=== PATIENT | male | born 1960 | race Caucasian/White ===

== ENCOUNTER 2016-06-20 11:14 | Emergency (ER) | payer OTHER ==
[~2016-06-20] VITALS: Ht 182.9 cm; Wt 81.4 kg
[~2016-06-20 11:14] MED LIST: ASPI-232 PO; ATOR10TA88 PO
[2016-06-20 11:20] VITALS: TEMP 37; Ht 182.9 cm; Wt 81.4 kg
[2016-06-20] MEDS ORDERED: ONDANSETRON INJ 2 MG/ML 2 ML VIAL IV STA (12:47)
[2016-06-20] MEDS ORDERED: SODIUM CHLORIDE 0.9% 1000ML 1,000 ML IV STA (12:47)
[2016-06-20] MEDS ORDERED: LORAZEPAM 2 MG/ML 1 ML VIAL IV STA (12:47)
[2016-06-20] MEDS ORDERED: ACETAMINOPHEN 500 MG TAB PO STA (12:47)
[2016-06-20 12:59] LABS: BASO % 0.4 %; BASO ABS # 0.03 K/uL (0-0.2); COMPLETE YES; EOS % 0.8 %; HEMATOCRIT 41.2 % (42-52); IG% 0.5 %; LYMPH % 22.9 %; LYMPH ABS # 1.75 K/uL (1.2-3.4); MEAN CELL VOLUME 83.4 fL (80-100); MEAN CORPUSCULAR HEMOGLOBIN 28.7 pg (25-34); MEAN CORPUSCULAR HGB CONC 34.5 g/dl (32-36); MEAN PLATELET VOLUME 10.5 fL (7.4-10.4); MONO % 7.7 %; NEUT % 67.7 %; PLATELET COUNT 258 K/uL (130-400); RED BLOOD COUNT 4.94 M/uL (4.7-6.1); WHITE BLOOD COUNT 7.63 K/uL (4.8-10.8)
--- NOTE | 2016-06-20 12:59 | EMERGENCY ROOM VISIT NOTE ---
History Report prepared by Erinn: Tanja Walters Under the Supervision of: Dr. Neo Sands M.D. First contact with patient: 12:38 Chief Complaint: FLU LIKE SX Stated Complaint: NECK STIFFNESS,FLU LIKE SYMPTOMS History of Present Illness The patient is a 55 year old male who presents to the Emergency Room with complaints of a persistent illness that started 10 days ago. He currently rates his discomfort as a 3/10 in severity. The patient states that last he had eaten a sandwich at a local restaurant and became sick afterwards. He states that he had been vomiting and experiencing diarrhea, but states that he felt better after a day. The patient states that last Tuesday he started experiencing chills, but denies any fever. He states that he had been up all night, so then that Tuesday morning he went to [facility]. The patient states that while there he was tested for the flu, but was discharged on Prednisone and Azithromycin. He states that he finished the Z-pack on Tuesday and the Prednisone on . The patient states that he still felt clammy and diaphoretic, and has noticed a dry cough. He states that he has noticed a squeezing pressure behind his eyes. The patient additionally associates rhinorrhea. The patient states that yesterday he went to the gym and did cardio, but states that he felt fine after. He states that he started with the chills again last evening. The patient states that last night around 2100 he began experiencing neck stiffness, joint pain, and a headache. He states that he went [facility] and was sent to the emergency department for a lumbar puncture to rule out meningitis. The patient denies any sore throat or urinary symptoms. He states that he has recently increased his fluid intake. The patient denies any recent travel. He denies being on any blood thinners, but states that he takes Lipitor for his cholesterol. The patient notes a history of a diastolic heart murmur, noting that he follows with Dr. Llamas. He denies any history of endocarditis. The patient denies any recent dental work. Source of History: patient Onset: 10 days ago Position: other (global) Symptom Intensity: 3/10 Quality: other (illness) Timing: other (persistent) Associated Symptoms: + chills, + diaphoresis, + neck pain (and stiffness), No fevers, No sorethroat, No urinary symptoms Note: Associated Symptoms: rhinorrhea, joint aches, feeling clammy Review of Systems See HPI for pertinent positives & negatives. A total of 10 systems reviewed and were otherwise negative. Past Medical & Surgical Medical Problems: (1) Hyperlipidemia Nec/Nos (2) Hypertension Nos (3) Irritable Bowel Syndrome Family History FH: heart disease FHx: gallbladder disease Kidney disease Kidney stones Social History Smoking Status: Never Smoker Alcohol Use: none Drug Use: none Marital Status: Housing Status: lives with family Occupation Status: employed Current/Historical Medications Scheduled Aspirin (Aspir-81), 1 TAB PO DAILY Atorvastatin (Lipitor), 10 MG PO EVERY OTHER DAY Meloxicam (Meloxicam), 15 MG PO DAILY Allergies Coded Allergies: No Known Allergies (Unverified , 06/20/16) Physical Exam Vital Signs Date Time Temp Pulse Resp B/P Pulse Ox O2 Delivery O2 Flow Rate FiO2 06/20/16 13:55 65 18 132/57 97 Room Air 06/20/16 12:25 75 18 163/69 99 Room Air 06/20/16 11:20 37.0 87 18 185/76 97 Room Air Physical Exam GENERAL: Patient is in no acute distress. HEENT: No acute trauma, normocephalic atraumatic, mucous membranes moist, no nasal congestion, no scleral icterus. NECK: Tenderness with palpation to the right posterior and lateral neck muscles. Equal carotid upstrokes bilaterally, no cellulitis, no stridor. LUNGS: Clear to auscultation bilaterally, no wheeze, no rhonchi, breath sounds equal. HEART: 3/6 diastolic murmur with a regular rhythm and rate. ABDOMEN: Soft, nontender, bowel sounds positive, no hernias, no peritonitis. EXTREMITIES: No cyanosis or edema, full range of motion of all the joints without pain or difficulty, no signs for acute trauma. NEUROLOGIC: Oriented x 3, no acute motor or sensory deficits, no focal weakness. SKIN: No rash, no jaundice, no diaphoresis. Medical Decision & Procedures ER Provider Diagnostic Interpretation: X-ray results as stated below per interpretation by me and the radiologist: CHEST ONE VIEW PORTABLE HISTORY: Evaluate Fever/Sepsis COMPARISON: Chest 10/24/2013. FINDINGS: The lungs are clear. Cardiac silhouette is normal in size. No pleural effusions. No pneumothorax. IMPRESSION: No acute process. Electronically signed by: Jose Martin Cao M.D. 06/20/2016 1:32 PM Dictated Date/Time: 06/20/2016 1:32 PM Laboratory Results 06/20/16 12:22 Red Blood Count 4.94, Mean Corpuscular Volume 83.4, Mean Corpuscular Hemoglobin 28.7, Mean Corpuscular Hemoglobin Concent 34.5, Mean Platelet Volume 10.5, Neutrophils (%) (Auto) 67.7, Lymphocytes (%) (Auto) 22.9, Monocytes (%) (Auto) 7.7, Eosinophils (%) (Auto) 0.8, Basophils (%) (Auto) 0.4, Neutrophils # (Auto) 5.16, Lymphocytes # (Auto) 1.75, Monocytes # (Auto) 0.59, Eosinophils # (Auto) 0.06, Basophils # (Auto) 0.03 06/20/16 12:22 Test 06/20/16 00:00 06/20/16 11:45 06/20/16 12:22 06/20/16 13:04 CSF Color COLORLESS CSF Appearance CLEAR CSF WBC 3 /uL (0-5) CSF RBC 2 /uL (0) CSF Xanthrochromic NO XANTHOCHROMIA CSF Cell Count Tube # 4 CSF Polynuclear WBCs (%) % CSF Chemistry Tube # 2 CSF Glucose 58 mg/dl (40-70) CSF Total Protein 40.8 mg/dl (15.0-45.0) Urine Color DK YELLOW Urine Appearance CLEAR (CLEAR) Urine pH 5.5 (4.5-7.5) Urine Specific [place] 1.020 (1.000-1.030) Urine Protein TRACE (NEG) Urine Glucose (UA) NEG (NEG) Urine Ketones NEG (NEG) Urine Occult Blood NEG (NEG) Urine Nitrite NEG (NEG) Urine Bilirubin NEG (NEG) Urine Urobilinogen NEG (NEG) Urine Leukocyte Esterase NEG (NEG) Urine WBC (Auto) 1-5 /hpf (0-5) Urine RBC (Auto) 0-4 /hpf (0-4) Urine Hyaline Casts (Auto) 1-5 /lpf (0-5) Urine Epithelial Cells (Auto) 5-10 /lpf (0-5) Urine Bacteria (Auto) NEG (NEG) White Blood Count 7.63 K/uL (4.8-10.8) Red Blood Count 4.94 M/uL (4.7-6.1) Hemoglobin 14.2 g/dL (14.0-18.0) Hematocrit 41.2 % (42-52) Mean Corpuscular Volume 83.4 fL (80-100) Mean Corpuscular Hemoglobin 28.7 pg (25-34) Mean Corpuscular Hemoglobin Concent 34.5 g/dl (32-36) Platelet Count 258 K/uL (130-400) Mean Platelet Volume 10.5 fL (7.4-10.4) Neutrophils (%) (Auto) 67.7 % Lymphocytes (%) (Auto) 22.9 % Monocytes (%) (Auto) 7.7 % Eosinophils (%) (Auto) 0.8 % Basophils (%) (Auto) 0.4 % Neutrophils # (Auto) 5.16 K/uL (1.4-6.5) Lymphocytes # (Auto) 1.75 K/uL (1.2-3.4) Monocytes # (Auto) 0.59 K/uL (0.11-0.59) Eosinophils # (Auto) 0.06 K/uL (0-0.5) Basophils # (Auto) 0.03 K/uL (0-0.2) RDW Standard Deviation 38.7 fL (36.4-46.3) RDW Coefficient of Variation 12.8 % (11.5-14.5) Immature Granulocyte % (Auto) 0.5 % Immature Granulocyte # (Auto) 0.04 K/uL (0.00-0.02) Erythrocyte Sedimentation Rate 38 mm/hr (0-14) Anion Gap 6.0 mmol/L (3-11) Est Creatinine Clear Calc Drug Dose 110.4 ml/min Estimated GFR () 114.8 Estimated GFR (Non- 99.1 BUN/Creatinine Ratio 13.3 (10-20) Calcium Level 9.3 mg/dl (8.5-10.1) Total Bilirubin 0.6 mg/dl (0.2-1) Aspartate Amino Transf (AST/SGOT) 46 U/L (15-37) Alanine Aminotransferase (ALT/SGPT) 121 U/L (12-78) Alkaline Phosphatase 168 U/L (45-117) Total Protein 7.7 gm/dl (6.4-8.2) Albumin 3.8 gm/dl (3.4-5.0) Globulin 3.9 gm/dl (2.5-4.0) Albumin/Globulin Ratio 1.0 (0.9-2) Lyme Disease IgG Antibody NEG (NEG) Lyme Disease IgM Antibody NEG (NEG) Monoscreen NEG (NEG) Influenza Type A (RT-PCR) Neg for Influ A (NEG) Influenza Type B (RT-PCR) Neg for Influ B (NEG) Laboratory results reviewed by me. Medications Administered Medications (Trade) Dose Ordered Sig/Bryanna Route Start Time Stop Time Status Last Admin Dose Admin Sodium Chloride (Nss 1000ml) 1,000 ml @ 200 mls/hr Q5H STAT IV 06/20/16 12:47 06/20/16 17:46 06/20/16 13:12 200 MLS/HR Acetaminophen (Tylenol Tab) 1,000 mg NOW STAT PO 06/20/16 12:47 06/20/16 12:53 DC 06/20/16 13:15 1,000 MG Lorazepam (Ativan Inj) 0.5 mg NOW STAT IV 06/20/16 12:47 06/20/16 12:53 DC 06/20/16 13:16 0.5 MG Procedure Lumbar Puncture Indication: headache. Verbal consent was obtained after the risks and benefits were explained, including but not limited to headache, bleeding/clotting, scarring, infection, pain, and bone/joint/nerve damage. At this time, the risks of the procedure are less than the risks of NOT performing the procedure. A time out was taken and the correct patient and site identified. The patient was placed in the seated position and the back was prepped with betadine and draped in the standard fashion. The L3 intervertebral space was identified, anesthetized locally with 1 % lidocaine without epinephrine, and the spinal needle was inserted through the skin with the bevel parallel to the dural fibers. The needle was carefully advanced into the lumbar cistern and 4 tubes of clear CSF was obtained. The stylet was replaced and the needle was removed. A bandaid was placed and the patient was placed in the supine position. The patient tolerated the procedure well and there were no complications. ED Course 1239: The patient was evaluated in room B11B. A complete history and physical exam was performed. 1247: Ordered Ativan Inj 0.5 mg IV, Tylenol Tab 1000 mg PO, Sodium Chloride 1000 ml @ 200 mls/hr IV. 1300: Ordered Lidocaine HCl 20 ml INFIL. 1346: I performed the lumbar puncture at this time. See procedure note for further detail. 1500: I reevaluated the patient and he is doing well. I discussed all the exam findings with him and I discussed the treatment plan. He verbalized complete understanding and agreement. He is ready to go home and follow up with Dr. Llamas tomorrow. 1503: Ordered Rocephin Inj 1 gm IV. Medical Decision The patient is a 55 year old male who presents to the ED with complaints of illness. Differential diagnoses considered include viral illness, endocarditis , lyme disease, pneumonia, meningitis, electrolyte imbalance, influenza, UTI, dehydration. There is no leukocytosis or concerning anemia. Sedimentation rate is not markedly elevated. There was no significant electrolyte abnormality or kidney failure. A very mild hepatitis was noted. Dent testing, Lyme testing, influenza testing were all negative. Chest x-ray does not show pneumonia or pneumothorax. On exam, there was no cellulitis. CSF fluid does not show evidence for meningitis. Blood cultures are pending. The patient's illness is likely viral, I am though somewhat concerned because of his cardiac murmur. He is followed on a regular basis for this murmur. Endocarditis can sometimes present like this. The patient received IV saline, IV Ativan, IV Zofran. He was given oral Tylenol. He did not want anything further for pain. He was given 1 dose of IV ceftriaxone for antibiotic coverage for the possibility of endocarditis-we await the blood culture results. 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 He will follow with his family doctor as well. Motrin, Tylenol, rest and hydration were encouraged. Heat to the neck may help as well. If worsening, the patient can return for reassessment. Impression Primary Impression: Headache Additional Impressions: Neck pain Body aches Scribe Attestation The scribe's documentation has been prepared under my direction and personally reviewed by me in its entirety. I confirm that the note above accurately reflects all work, treatment, procedures, and medical decision making performed by me. Departure Information Dispostion Home / Self-Care Referrals Melony Peraza MD (PCP) Forms HOME CARE DOCUMENTATION FORM, IMPORTANT VISIT INFORMATION, Work Instructions Patient Instructions My [facility] [place] Additional Instructions see Dr. Llamas tomorrow as scheduled see hemalatha murray this week for recheck as well rest fluids motrin 600 mg 3x per day for 4 days tylenol for pain and fever as needed heat to the neck may help return if worsening we have blood cultures pending and will call you with positive results Problem Qualifiers
[2016-06-20] MEDS ORDERED: MoRPHine SULFATE 4 MG/ML 1 ML CARP\\VIAL IV PRN (13:00)
[2016-06-20] MEDS ORDERED: XYLOCAINE 1%/SOD BICARB 20 ML VIAL INFIL ONE (13:00)
[2016-06-20 13:07] LABS: BUN/CREATININE RATIO 13.3 (10-20); CALCIUM 9.3 mg/dl (8.5-10.1); CREATININE 0.83 mg/dl (0.60-1.40); POTASSIUM 3.9 mmol/L (3.5-5.1)
[2016-06-20] MEDS ORDERED: MELO15TA4 PO (13:17)
[2016-06-20 13:26] LABS: URINE APPEARANCE CLEAR (CLEAR); URINE BILIRUBIN NEG (NEG); URINE COLOR DK YELLOW; URINE NITRITE NEG (NEG); URINE PH 5.5 (4.5-7.5); UROBILINOGEN NEG (NEG); ZZUR CULT IF INDIC CLEAN CATCH NO
[2016-06-20 13:27] LABS: MANUAL MICROSCOPIC REQUIRED? NO; REVIEW REQ? NO
[2016-06-20 13:33] LABS: LYME DISEASE AB IGG NEG (NEG); LYME DISEASE AB IGM NEG (NEG)
--- NOTE | 2016-06-20 13:34 | DIAGNOSTIC IMAGING REPORT ---
CHEST ONE VIEW PORTABLE HISTORY: Evaluate Fever/Sepsis COMPARISON: Chest 10/24/2013. FINDINGS: The lungs are clear. Cardiac silhouette is normal in size. No pleural effusions. No pneumothorax. IMPRESSION: No acute process. Electronically signed by: Jose Martin Cao M.D. 06/20/2016 1:32 PM Dictated Date/Time: 06/20/2016 1:32 PM
[2016-06-20 14:31] LABS: CSF APPEARANCE CLEAR; CSF COLOR COLORLESS; CSF XANTHOCHROMIC NO XANTHOCHROMIA
[2016-06-20 14:32] LABS: CSF CHEMISTRY TUBE # 2
[2016-06-20 14:38] LABS: CSF TOTAL PROTEIN 40.8 mg/dl (15.0-45.0)
[2016-06-20 14:52] LABS: INFLUENZA A PCR Neg for Influ A (NEG); INFLUENZA B PCR Neg for Influ B (NEG)
[2016-06-20] MEDS ORDERED: CEFTRIAXONE SOD INJ 1 GM ADDVIAL IV STA (15:03)
[2016-06-20 15:42] VITALS: BP 147/65; PULSE 68; O2SAT 98
[2016-06-21] MEDS ORDERED: IBUP-1277 PO (11:06)
[2016-06-23] MEDS ORDERED: RCPAV1 IV (13:38)
--- NOTE | 2016-06-23 13:39 | Pharmacy Progress Note ---
ED Pharmacist Culture FollowUp Date of Service: Jun 23, 2016. Patient returned to hospital and was admitted 06/21. Patient is still admitted and being followed by infectious disease. Per ID note today, they are aware of the Strep mitis in the blood culture and are managing this patient's antibiotics. No further intervention required by ED staff.
== END 2016-06-20 16:16 | disposition home or self-care (01) ==
LOC: C.EDB 11:16
DX: R51 Headache (principal); R52 Pain, unspecified; M54.2 Cervicalgia; E78.5 Hyperlipidemia, unspecified; I10 Essential (primary) hypertension; K58.9 Irritable bowel syndrome, unspecified; Z82.49 Family history of ischemic heart disease and other diseases of the circulatory system

== ENCOUNTER 2016-06-21 10:50 | Inpatient (IN) | payer OTHER ==
[~2016-06-21] VITALS: Ht 182.9 cm; Wt 79.1 kg
[~2016-06-21 10:50] MED LIST changes: +MELO15TA4 PO
[2016-06-21] MEDS ORDERED: IBUP-1277 PO (11:06)
[2016-06-21] MEDS ORDERED: VANCOMYCIN INJ 2,000 MG in SODIUM CHLORIDE 0.9% 500ML 500 ML IV STA (11:14)
[2016-06-21] MEDS ORDERED: CEFTRIAXONE SOD INJ 1 GM ADDVIAL IV STA (11:14)
[2016-06-21 11:46] LABS: BASO % 0.4 %; BASO ABS # 0.03 K/uL (0-0.2); COMPLETE YES; EOS % 0.7 %; HEMATOCRIT 40.1 % (42-52); IG% 0.7 %; LYMPH % 27.9 %; LYMPH ABS # 2.31 K/uL (1.2-3.4); MEAN CELL VOLUME 84.8 fL (80-100); MEAN CORPUSCULAR HGB CONC 34.2 g/dl (32-36); MEAN PLATELET VOLUME 10.4 fL (7.4-10.4); MONO % 7.9 %; NEUT % 62.4 %; PLATELET COUNT 270 K/uL (130-400); RED BLOOD COUNT 4.73 M/uL (4.7-6.1); WHITE BLOOD COUNT 8.28 K/uL (4.8-10.8)
[2016-06-21 12:07] LABS: BUN/CREATININE RATIO 17.1 (10-20); C-REACTIVE PROTEIN 5.34 mg/dl (0-0.29); CALCIUM 9.2 mg/dl (8.5-10.1); CREATININE 0.76 mg/dl (0.60-1.40); POTASSIUM 3.9 mmol/L (3.5-5.1)
[2016-06-21] MEDS ORDERED: POLYETHYLENE (MIRALAX) 17 GM PACK PO PRN (12:30)
[2016-06-21] MEDS ORDERED: ZOLPIDEM TARTRATE 5 MG TAB PO PRN (12:30)
[2016-06-21] MEDS ORDERED: MAGNESIUM HYDROXIDE SUSP 30 ML UDC PO PRN (12:30)
[2016-06-21] MEDS ORDERED: ALUMINUM/MAGNESIUM/SIMETH (MAALOX MAX) 30 ML UDC PO PRN (12:30)
[2016-06-21] MEDS ORDERED: NITROGLYCERIN 0.4 MG SL PER TAB CHARGE SL PRN (12:30)
--- NOTE | 2016-06-21 14:25 | History and Physical ---
History & Physical Date & Time of Service: Jun 21, 2016 at 14:13 Chief Complaint: Endocarditis; Septicemia Primary Care Physician: Melony Peraza MD History of Present Illness Source: patient, hospital records 55 -year-old male presents to the emergency department for the second consecutive day after he was notified by emergency department staff of positive blood cultures from yesterday's visit. Previous to his visit yesterday, the patient noted approximately 10-14 day history of generalized illness. The patient recalls eating a sandwich which included cooked oysters at a local restaurant and afterwards she became ill with gastrointestinal complaints. He notes nausea and vomiting along with diarrhea but these symptoms were short-lived and resolved by the following day. Two or three days later (the ensuing Tuesday) the patient started to experience chills. The following day, Tuesday, he went to [facility] and was tested for influenza. His test for influenza was negative the patient was sent home with prescriptions for azithromycin and prednisone. He completed the azithromycin on Tuesday and the prednisone on . The patient states that he still had intermittent clamminess and some diaphoreses along with an occasional dry cough. Additionally, he noted a posterior neck pain which was exacerbated when looking towards the right. He also describes some rhinorrhea and generalized sinus congestion with pressure behind his eyes. 2 days ago, the patient went to the gym and did his usual cardio workout and felt fine afterwards. However, later that evening, the patient stated that he had chills once again. The patient was seen and [facility] [facility] a second time and based on his symptoms referred to the emergency department. An yesterday's visit to the emergency department he underwent a lumbar puncture, blood work, and blood cultures. Today when the blood cultures returned positive, he was contacted to return to the emergency department. Coincidentally he had an appointment with Dr. Llamas scheduled for 2 PM today. This was a routine visit for follow-up of a heart murmur. The patient had a outpatient echocardiogram in April of this year. Family History FH: heart disease FHx: gallbladder disease Kidney disease Kidney stones Noncontributory Social History Smoking Status: Never Smoker Smokeless Tobacco Use: No Alcohol Use: occasionally Drug Use: none Marital Status: Housing status: lives with family Occupational Status: retired (he retired approximately one year ago.) Immunizations History of Influenza Vaccine: Unknown History of Tetanus Vaccine?: Unknown History of Pneumococcal: No History of Hepatitis B Vaccine: Unknown Multi-Drug Resistant Organisms History of MDRO: No Allergies Coded Allergies: No Known Allergies (Unverified , 06/21/16) Home Medications Scheduled Aspirin (Aspir-81), 1 TAB PO DAILY Atorvastatin (Lipitor), 10 MG PO EVERY OTHER DAY Ibuprofen (Advil), 600 MG PO UD Review of Systems Constitutional: + chills, + fatigue Eyes: No problem reported ENT: + nasal symptoms, No dental problems, No sore throat, No trouble swallowing, No unusual epistaxis Respiratory: + cough, + shortness of breath, No dyspnea at rest, No dyspnea on exertion, No hemoptysis, No sputum, No wheezing Cardiovascular: No chest pain, No palpitations Abdomen: No problem reported Musculoskeletal: No calf pain, No joint pain, No muscle pain, No swelling Genitourinary - Male: No dysuria, No hematuria Neurologic: No balance problems, No numbness/tingling, No vertigo Psychiatric: No problem reported Endocrine: + fatigue Integumentary: No rash Physical Exam Vital Signs Date Time Temp Pulse Resp B/P Pulse Ox O2 Delivery O2 Flow Rate FiO2 06/21/16 13:29 76 18 146/60 98 06/21/16 13:11 70 18 146/60 97 Room Air 06/21/16 12:39 73 06/21/16 12:35 72 20 154/72 98 Room Air 06/21/16 11:00 82 20 193/79 99 Room Air General Appearance: WD/WN, no apparent distress Head: normocephalic, atraumatic Eyes: normal inspection, PERRL, EOMI ENT: normal ENT inspection, hearing grossly normal, TMs normal, pharynx normal Neck: supple, no adenopathy, thyroid normal, no JVD, no carotid bruits, trachea midline Respiratory/Chest: chest non-tender, lungs clear, normal breath sounds, no respiratory distress, no accessory muscle use Cardiovascular: regular rate, rhythm, + systolic murmur (3 to 4/6 holosystolic pronounced both at the right sternal border and apex.) Abdomen/GI: normal bowel sounds, non tender, soft, no organomegaly Back: normal inspection (there is no tenderness along the cervical spine with palpation. His right cervical rotation is limited secondary to discomfort. His left cervical rotation is not restricted. His cervical flexion and cervical extension is an range of motion without restriction.) Extremities/Musculoskelatal: normal inspection, no calf tenderness, normal capillary refill Neurologic/Psych: no motor/sensory deficits, alert, normal mood/affect, oriented x 3 Skin: normal color, warm/dry, no rash Diagnostics Laboratory Results Results Past 24 Hours Test 06/21/16 11:38 06/21/16 11:39 Range/Units White Blood Count 8.28 4.8-10.8 K/uL Red Blood Count 4.73 4.7-6.1 M/uL Hemoglobin 13.7 14.0-18.0 g/dL Hematocrit 40.1 42-52 % Mean Corpuscular Volume 84.8 80-100 fL Mean Corpuscular Hemoglobin 29.0 25-34 pg Mean Corpuscular Hemoglobin Concent 34.2 32-36 g/dl Platelet Count 270 130-400 K/uL Mean Platelet Volume 10.4 7.4-10.4 fL Neutrophils (%) (Auto) 62.4 % Lymphocytes (%) (Auto) 27.9 % Monocytes (%) (Auto) 7.9 % Eosinophils (%) (Auto) 0.7 % Basophils (%) (Auto) 0.4 % Neutrophils # (Auto) 5.17 1.4-6.5 K/uL Lymphocytes # (Auto) 2.31 1.2-3.4 K/uL Monocytes # (Auto) 0.65 0.11-0.59 K/uL Eosinophils # (Auto) 0.06 0-0.5 K/uL Basophils # (Auto) 0.03 0-0.2 K/uL RDW Standard Deviation 40.2 36.4-46.3 fL RDW Coefficient of Variation 12.9 11.5-14.5 % Immature Granulocyte % (Auto) 0.7 % Immature Granulocyte # (Auto) 0.06 0.00-0.02 K/uL Erythrocyte Sedimentation Rate 40 0-14 mm/hr Sodium Level 135 136-145 mmol/L Potassium Level 3.9 3.5-5.1 mmol/L Chloride Level 99 98-107 mmol/L Carbon Dioxide Level 33 21-32 mmol/L Anion Gap 3.0 3-11 mmol/L Blood Urea Nitrogen 13 7-18 mg/dl Creatinine 0.76 0.60-1.40 mg/dl Est Creatinine Clear Calc Drug Dose 120.6 ml/min Estimated GFR () 119.0 Estimated GFR (Non- 102.7 BUN/Creatinine Ratio 17.1 10-20 Random Glucose 87 70-99 mg/dl Calcium Level 9.2 8.5-10.1 mg/dl C-Reactive Protein 5.34 0-0.29 mg/dl Bedside Lactic Acid Venous 1.04 0.90-1.70 mmol/L Diagnostic Radiology Chest x-ray is pending EKG EKG is pending Impression Assessment and Plan 55 year old male with prostate 10 day history of generalized illness, fatigue, and chills in the setting of positive blood cultures for gram-positive cocci and a pronounced cardiac murmur and right-sided neck pain. He had a 5 day course of azithromycin and a 6 day course of prednisone within the course of the illness. PLAN 1 admit to telemetry 2 consult cardiology and infectious disease; continue vancomycin and ceftriaxone. 3 transthoracic echocardiogram today; likely will need transesophageal echocardiogram tomorrow 4 continue vancomycin and ceftriaxone with pharmacy and infectious disease consult. 5 follow ESR and CRP. We'll check rheumatoid factor, as can be a elevated in case of IE. 6 given his neck pain will check MRI of the C-spine. Level of Care Telemetry Resuscitation Status FULL RESUSCITATION VTE Prophylaxis VTE Risk Assessment Done? Y/N: Yes Risk Level: Low Given or contraindicated: T.E.D. Stockings
--- NOTE | 2016-06-21 14:27 | History and Physical ---
History General Date of Service: Jun 21, 2016. Stated Complaint: Flu-Like Sx History of Present Illness 55M with a PMHx of diastolic heart murmur x 1 year presents for a follow up of positive blood cultures. Patient was seen in the ER yesterday for flu like symptoms including fevers, chills, neck stiffness and general malaise x 10 days. Over the past 10 days patient took a Z pack with steroids and felt marginally better. Patient denies coughing, dysuria, sore throat, boils or skin infections. Patient does remember slamming his finger between two weights at the gym approximately 6 weeks ago and continued right index finger pain and swelling. Pt reports at the time of injury he broke the skin and his finger was bleeding. Patient sees Dr. 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 Pt's last echocardiogram was on Apr 28 2016 with the findings: Mildly dilated left ventricle with normal systolic function and wall motion. EF 60-65%. Mild concentric left ventricular hypertrophy. At least moderate, eccentric, aortic regurgitation. There is mild mitral regurgitation. ROS: MSK chest pain while lifting his 80lb wheelchair bound daughter. No recent dental work. 5lb weight loss in the past 10 days. Allergies: NKDA FMHx: Father had an MO. SHx: Denies illicit drug use. Historian: patient Review of Systems Constitutional: + chills, + fever, + sweats, + weight loss Respiratory: No cough, No shortness of breath, No sputum, No wheezing Male : No dysuria Family History FH: heart disease FHx: gallbladder disease Kidney disease Kidney stones Social History Smoking Status: Never Smoker Alcohol: none Drug Use: none Marital Status: Housing Status: lives with family Occupation Status: employed History of MDRO History of MDRO: No Allergies Coded Allergies: No Known Allergies (Unverified , 06/21/16) Current Home Medications Reported Home Medications Medications Dose Route/Sig Max Daily Dose Days Date Category Advil (Ibuprofen) 200 Mg Tab 600 Mg PO UD 06/21/16 Reported Aspir-81 (Aspirin) 81 Mg Tab 1 Tab PO DAILY 12/07/14 Reported Lipitor (Atorvastatin Calcium) 10 Mg Tab 10 Mg PO EVERY OTHER DAY 01/12/08 Reported Physical Exam Date Time Temp Pulse Resp B/P Pulse Ox O2 Delivery O2 Flow Rate FiO2 06/21/16 13:29 76 18 146/60 98 06/21/16 13:11 70 18 146/60 97 Room Air 06/21/16 12:39 73 06/21/16 12:35 72 20 154/72 98 Room Air 06/21/16 11:00 82 20 193/79 99 Room Air Weight in Kilograms: 81.200 Constitutional: General Apperance: heathly-appearing, well-nourished, well-developed Level of Distress: NAD Ambulation: ambulating normally Head: normocephalic, atraumatic Lungs: Respiratory effort: no dyspnea, good air movement Auscultation: breath sounds normal, CTA except as noted, no wheezing, no rales/crackles, no rhonchi Cardiovascular: Heart Auscultation: RRR, murmur (dove diastolic ejection murmur. ) Peripheral Pulses: Bruits: none appreciated Radial Pulse: normal on the left, normal on the right Dorsalis Pedis Pulse: normal on the left, normal on the right Extremities: no cyanosis, no edema, no varicosities, no palpable cord, no clubbing, pertinent finding (Pt has a swollen and mildly tender right index finger. FROM in the finger. The nail on the 2nd R digit has signs of previous trauma. Possible spinter hemorrhage on the R 5th nail.) Neurologic: Gait & Station: normal gait, normal station Cranial Nerves: grossly intact Sensation: grossly intact Diagnostics Laboratory Results Results Past 24 Hours Test 06/21/16 11:38 06/21/16 11:39 Range/Units White Blood Count 8.28 4.8-10.8 K/uL Red Blood Count 4.73 4.7-6.1 M/uL Hemoglobin 13.7 14.0-18.0 g/dL Hematocrit 40.1 42-52 % Mean Corpuscular Volume 84.8 80-100 fL Mean Corpuscular Hemoglobin 29.0 25-34 pg Mean Corpuscular Hemoglobin Concent 34.2 32-36 g/dl Platelet Count 270 130-400 K/uL Mean Platelet Volume 10.4 7.4-10.4 fL Neutrophils (%) (Auto) 62.4 % Lymphocytes (%) (Auto) 27.9 % Monocytes (%) (Auto) 7.9 % Eosinophils (%) (Auto) 0.7 % Basophils (%) (Auto) 0.4 % Neutrophils # (Auto) 5.17 1.4-6.5 K/uL Lymphocytes # (Auto) 2.31 1.2-3.4 K/uL Monocytes # (Auto) 0.65 0.11-0.59 K/uL Eosinophils # (Auto) 0.06 0-0.5 K/uL Basophils # (Auto) 0.03 0-0.2 K/uL RDW Standard Deviation 40.2 36.4-46.3 fL RDW Coefficient of Variation 12.9 11.5-14.5 % Immature Granulocyte % (Auto) 0.7 % Immature Granulocyte # (Auto) 0.06 0.00-0.02 K/uL Erythrocyte Sedimentation Rate 40 0-14 mm/hr Sodium Level 135 136-145 mmol/L Potassium Level 3.9 3.5-5.1 mmol/L Chloride Level 99 98-107 mmol/L Carbon Dioxide Level 33 21-32 mmol/L Anion Gap 3.0 3-11 mmol/L Blood Urea Nitrogen 13 7-18 mg/dl Creatinine 0.76 0.60-1.40 mg/dl Est Creatinine Clear Calc Drug Dose 120.6 ml/min Estimated GFR () 119.0 Estimated GFR (Non- 102.7 BUN/Creatinine Ratio 17.1 10-20 Random Glucose 87 70-99 mg/dl Calcium Level 9.2 8.5-10.1 mg/dl C-Reactive Protein 5.34 0-0.29 mg/dl Bedside Lactic Acid Venous 1.04 0.90-1.70 mmol/L EKG Interpretation: other (No recent EKG available.) Impression Assessment and Plan 55M with a PMHx of diastolic murmur presents with a 10 day history of fevers and chills and positive blood cultures. Patient is stable. Pt was started on Ceftriaxone and Vanco. 1. Bacteremia, possible endocarditis. - Blood cultures revealed gram positive cocci, sensitivities pending. Source may be from finger. - TTE echocardiogram today, consider ISAIAH tomorrow. - c.w Ceftriaxone and Vanco, defer to ID for Abx coverage. - Will order EKG. - Will make NPO for tomorrow ISAIAH. 2. Diastolic Murmur x 1 year - Pt sees Dr. Llamas, has had an echocardiogram in April showing moderate Aortic Regurgitation. - Pt does not have any current symptoms of CHF. - f/u echo and EKG. Level of Care Telemetry Resident Involvement: Resident Care Provided Care Provided: Adult Hospital Medicine
[2016-06-21 14:30] VITALS: BP 157/71; TEMP 37.5; O2SAT 98; Ht 182.9 cm; Wt 79.1 kg
[2016-06-21 14:36] VITALS: BP 157/71; PULSE 69; TEMP 37.5; O2SAT 98
--- NOTE | 2016-06-21 14:56 | Cardiology Consultation ---
Cardiology Consultation Date of Consultation: Jun 21, 2016. Requesting Physician: Dr. Messer Reason for Consultation: Positive blood cultures Pt evaluation today including: conversation w/ patient, physical exam, lab review, review of studies, review of inpatient medication list History of Present Illness This is a very pleasant 55-year-old gentleman who has a history of aortic insufficiency which has not been severe enough to require intervention in the past. He had dental work done about 2 weeks ago (cleaning), over the last week to 10 days he began to feel poorly with intermittent sweats, etc. and presented to urgent care with neck discomfort and headache yesterday. Due to the concern that this might be meningitis he was sent to the emergency room where blood cultures were done and a spinal tap was performed. The spinal tap was negative however the blood cultures were both positive for gram positives. He was called and asked to come back in today. He has been on and off of antibiotics recently, so he feels fairly well currently. He does not have lightheadedness or dizziness, has not noticed a big difference in his exercise ability except that he has not been feeling well. He is to go to the gym regularly and has not done that over the last week or so. He does not have chest discomfort. He has no orthopnea or PND or peripheral edema. Past Medical/Surgical History (1) Septicemia (2) Endocarditis (3) Hyperlipidemia Nec/Nos (4) Hypertension Nos (5) Irritable Bowel Syndrome Family History FH: heart disease FHx: gallbladder disease Kidney disease Kidney stones Social History Smoking Status: Never Smoker Review of Systems Constitutional: + see HPI, + sweats, No fever, No weakness, No weight loss Respiratory: No cough, No shortness of breath, No sputum, No wheezing Cardiac: No PND, No chest pain, No edema, No orthopnea, No palpitations Abdomen: No GI bleeding, No diarrhea, No nausea, No pain, No vomiting Male : No nocturia more than once/night, No sexual dysfunction, No slowing stream, No urinary frequency Neurologic: + problem reported (headache), No balance problems, No numbness/ tingling, No paralysis, No weakness Heme: No abnormal bleeding/bruising, No clotting problems Endo: No fatigue Skin: No problem reported All Other Systems: Reviewed and Negative Allergies Coded Allergies: No Known Allergies (Unverified , 06/21/16) Medications Current Inpatient Medications Medications (Trade) Dose Ordered Sig/Bryanna Route Start Time Stop Time Status Last Admin Dose Admin Acetaminophen (Tylenol Tab) 650 mg Q4H PRN PO 06/21/16 12:30 07/21/16 12:29 Al Hydrox/Mg Hydrox/Simethicone (Maalox Max Susp) 15 ml Q4H PRN PO 06/21/16 12:30 07/21/16 12:29 Magnesium Hydroxide (Milk Of Magnesia Susp) 30 ml Q12H PRN PO 06/21/16 12:30 07/21/16 12:29 Zolpidem Tartrate (Ambien Tab) 5 mg HSZ PRN PO 06/21/16 12:30 07/21/16 12:29 Nitroglycerin (Nitrostat Tab) 0.4 mg UD PRN SL 06/21/16 12:30 07/21/16 12:29 Polyethylene (Miralax Powder Packet) 17 gm DAILY PRN PO 06/21/16 12:30 07/21/16 12:29 Physical Exam Vital Signs Past 12 Hours Date Time Temp Pulse Resp B/P Pulse Ox O2 Delivery O2 Flow Rate FiO2 06/21/16 14:36 37.5 69 20 157/71 98 Room Air 06/21/16 13:29 76 18 146/60 98 06/21/16 13:11 70 18 146/60 97 Room Air 06/21/16 12:39 73 06/21/16 12:35 72 20 154/72 98 Room Air 06/21/16 11:00 82 20 193/79 99 Room Air Constitutional: General Apperance: heathly-appearing, well-nourished, well-developed Level of Distress: NAD Ambulation: ambulating normally Psychiatric: Mental Status: active & alert Head: normocephalic Eyes: EOM: EOMI ENMT: normal ENT inspection, hearing grossly normal Neck: supple, no masses Lungs: Respiratory effort: no dyspnea, good air movement Auscultation: breath sounds normal, CTA except as noted, no wheezing, no rales/crackles, no rhonchi Cardiovascular: Heart Auscultation: RRR, murmur (decrescendo diastolic murmur at the base) Peripheral Pulses: Bruits: none appreciated Radial Pulse: normal on the left, normal on the right Dorsalis Pedis Pulse: normal on the left, normal on the right Abdomen: Bowel Sounds: normal Inspection & Palpation: soft, no tenderness, guarding & rebound, no masses Musculoskeletal: normal strength (5/5 throughout) Extremities: no cyanosis, no edema, no varicosities, no palpable cord, no clubbing, pertinent finding (Pt has a swollen and mildly tender right index finger. FROM in the finger. The nail on the 2nd R digit has signs of previous trauma. Possible spinter hemorrhage on the R 5th nail.) Neurologic: Gait & Station: normal gait, normal station Cranial Nerves: grossly intact Sensation: grossly intact Data Laboratory Results: Last 24 Hours Test 06/21/16 11:38 06/21/16 11:39 White Blood Count 8.28 K/uL Red Blood Count 4.73 M/uL Hemoglobin 13.7 g/dL Hematocrit 40.1 % Mean Corpuscular Volume 84.8 fL Mean Corpuscular Hemoglobin 29.0 pg Mean Corpuscular Hemoglobin Concent 34.2 g/dl Platelet Count 270 K/uL Mean Platelet Volume 10.4 fL Neutrophils (%) (Auto) 62.4 % Lymphocytes (%) (Auto) 27.9 % Monocytes (%) (Auto) 7.9 % Eosinophils (%) (Auto) 0.7 % Basophils (%) (Auto) 0.4 % Neutrophils # (Auto) 5.17 K/uL Lymphocytes # (Auto) 2.31 K/uL Monocytes # (Auto) 0.65 K/uL Eosinophils # (Auto) 0.06 K/uL Basophils # (Auto) 0.03 K/uL RDW Standard Deviation 40.2 fL RDW Coefficient of Variation 12.9 % Immature Granulocyte % (Auto) 0.7 % Immature Granulocyte # (Auto) 0.06 K/uL Erythrocyte Sedimentation Rate 40 mm/hr Sodium Level 135 mmol/L Potassium Level 3.9 mmol/L Chloride Level 99 mmol/L Carbon Dioxide Level 33 mmol/L Anion Gap 3.0 mmol/L Blood Urea Nitrogen 13 mg/dl Creatinine 0.76 mg/dl Est Creatinine Clear Calc Drug Dose 120.6 ml/min Estimated GFR () 119.0 Estimated GFR (Non- 102.7 BUN/Creatinine Ratio 17.1 Random Glucose 87 mg/dl Calcium Level 9.2 mg/dl C-Reactive Protein 5.34 mg/dl Bedside Lactic Acid Venous 1.04 mmol/L Imaging: Echo interpretation pending EKG: Sinus rhythm, anterolateral T-wave inversion. Telemetry reviewed: Sinus rhythm, no significant ectopy. Assessment & Plan #1. Positive blood cultures: This is very worrisome in that is likely this does represent endocarditis, he had dental work done about 2 weeks ago and has classic symptoms for endocarditis. He has an abnormal valve start with (aortic insufficiency) and this will need to be evaluated. #2. Aortic insufficiency: He has a loud murmur, but we will need echocardiogram to see if his aortic insufficiency has changed and to see if there are any obvious vegetations. If the transthoracic echo is negative for vegetations out recommended transesophageal echocardiogram and I will make him nothing by mouth for tomorrow in case we need to do that. I discussed this with him. Thank you for allowing me to participate in his care.
--- NOTE | 2016-06-21 15:11 | Progress Note ---
Progress Note Date of Service Jun 21, 2016. Progress Note ID Consult dictated #[id number] A/P: 1. GPC septicemia, AR and recent dental work, concerning for IE -continue abx, follow cultures, await ID of gpc. repeat cultures x 2 -echo and mri pending -csf studies negative -will follow, thank you
[2016-06-21 16:00] VITALS: O2SAT 98
--- NOTE | 2016-06-21 16:03 | INFECT. DISEASE CONSULTATION ---
DATE OF CONSULTATION: 06/21/2016 REQUESTING PHYSICIAN: Ed Messer DO HISTORY OF PRESENT ILLNESS: This is a 55-year-old gentleman who was admitted after he was contacted by the Emergency Room that he had positive blood cultures. He was initially seen in the Emergency Room yesterday when he presented with cervical pain, headache and subjective fevers and chills at home. He states this started almost 2 weeks ago. He was contacted by the Emergency Room, when his blood cultures returned positive today with GPCs. He has subsequently been admitted and started on vancomycin and Rocephin. He did have a lumbar puncture as part of his workup yesterday which was essentially negative. He had 3 WBCs. He had colorless fluid and a negative Gram stain. CSF culture is pending. He did have a Lyme titer drawn yesterday, which was negative. His flu swab was negative. He was given a 1 time dose of Rocephin yesterday in the ER prior to his departure. He does have a history of aortic regurgitation and he does get serial echocardiograms every 6 months. He has had no change in his echo findings. His last echo was done in April. He did have dental work on June 04 which he describes as a routine cleaning. He does not take prophylactic antibiotics for any dental work. His other injuries include an injury to the right second digit sometime ago, between 4 and 5 weeks ago at the gym when he had a crush injury from weights. He did have a minor hematoma but that has resolved completely. He also does complain of a history of right elbow injury which did require multiple courses of antibiotics and an eventual abscess drainage in December 2014. He does not have any residual complaints from that injury. He has had no travel recently. He currently is retired. He does have 1 daughter in the home who has had multiple cardiac surgeries and does require tracheostomy; however, he states there have been no sick contacts and she has been doing well. He states that around 1-1/2 to 2 weeks ago after eating out and having a salad and a sandwich, he did have 1 episode of diarrhea. He was out with his and she did not have any similar complaints. He denies any fevers and chills at that time. He states over the next few days, he did feel lethargic and had very little energy. He did have periods of subjective chills but does not feel that he had a fever. He denies any chest pain associated with this. He was seen at an urgent care centered within the last week and was given a Z-DEWAYNE and prednisone taper. He states he felt well after that but only for a few days and then his symptoms began to return. This ended with severe headache and neck pain yesterday which required him to present to the Emergency Room where he underwent a lumbar puncture. Again, this was unremarkable. He is due to have an echocardiogram today and an MRI of the cervical spine. He is on tentatively tomorrow for a ISAIAH depending on the results of his transthoracic echo. He was placed on vancomycin and Rocephin. His white blood cell count has been normal and he has been afebrile; however, his sed rate is elevated at 40 and his CRP is 5.3. Repeat blood cultures have not been done to date. All remaining review of systems are reviewed and are negative except as noted above. FAMILY HISTORY: Noncontributory. PAST MEDICAL HISTORY: Significant for aortic regurgitation. PAST SURGICAL HISTORY: There is no surgical history. SOCIAL HISTORY: Negative for tobacco use or drug use. He drinks occasionally. He is and lives with his family. He does not have any recent travel. He has no known sick contacts. ALLERGIES: No known drug allergies. CURRENT MEDICATIONS: Tylenol, Maalox, milk of magnesia, Ambien, Nitrostat, and MiraLax. He has also been restarted on Rocephin and vancomycin. LABORATORY STUDIES: CBC reveals a white blood cell count of 8.2, hemoglobin 13.7, hematocrit 40.1, platelets are 270, sed rate is 40. Chemistry panel reveals a sodium of 135, potassium 3.9, chloride 99, bicarbonate 33, BUN 13, creatinine 0.7, glucose is 87. CRP is 5.3. Again, blood cultures from the are growing gram positive cocci. Chest x-ray done in the ER yesterday was unremarkable. ASSESSMENT AND PLAN: Gram-positive septicemia with history of heart murmur concerning for endocarditis, especially with recent dental work. He will be continued on broad spectrum antibiotics. I will follow the result of his MRI as well as his transthoracic echo. He may in fact need transesophageal echocardiography in the morning and will be made n.p.o. tentatively for this. Repeat blood cultures will be obtained. We will follow along with you. Thank you for this consultation.
[2016-06-21 16:24] VITALS: BP 163/69; PULSE 72; TEMP 37.1; O2SAT 97
--- NOTE | 2016-06-21 16:27 | Pharmacy Progress Note ---
Pharmacy Antibiotic Consult Date of Service: Jun 21, 2016. Pharmacy Dosing Scope Pharmacy is consulted to initiate Vancomycin IV dosing therapy, order appropriate labs and adjust drug dose/frequency. Subjective The patient is a 55 year old male admitted on Jun 21, 2016 at 12:35 with possible endocarditis. Patient was in the ED yesterday where blood cultures where drawn and both returned positive for gram positive cocci. Patient is at risk for endocarditis given his heart murmur and recent dental work without prophylactic abx. Objective Height (Feet): 6 Height (Inches): 0 Weight (Kilograms): 81.200 Lab Results (24hrs): Laboratory Tests Test 06/21/16 11:38 BUN/Creatinine Ratio 17.1 Blood Urea Nitrogen 13 mg/dl Creatinine 0.76 mg/dl White Blood Count 8.28 K/uL Red Blood Count 4.73 M/uL Hemoglobin 13.7 g/dL Hematocrit 40.1 % Mean Corpuscular Volume 84.8 fL Mean Corpuscular Hemoglobin 29.0 pg Mean Corpuscular Hemoglobin Concent 34.2 g/dl Platelet Count 270 K/uL Mean Platelet Volume 10.4 fL Neutrophils (%) (Auto) 62.4 % Lymphocytes (%) (Auto) 27.9 % Monocytes (%) (Auto) 7.9 % Eosinophils (%) (Auto) 0.7 % Basophils (%) (Auto) 0.4 % Neutrophils # (Auto) 5.17 K/uL Lymphocytes # (Auto) 2.31 K/uL Monocytes # (Auto) 0.65 K/uL Eosinophils # (Auto) 0.06 K/uL Basophils # (Auto) 0.03 K/uL Micro Results: In addition both blood cultures from yesterday in the E.D resulted positive for GPC Item Value Date Time Blood Culture Received 06/21/16 1559 Blood Pending Blood Culture Received 06/21/16 1557 Blood Pending Recent Pertinent Medications Item Value Date Time Ceftriaxone 70 ml @ 100 mls/hr 06/22/16 1200 Sodium 2000 mg/ Q24H/IV Dextrose Assessment & Plan Loading dose: Vancomycin 2000mg IV (25mg/kg) X 1 dose then will start Vancomycin 1300mg (~16mg/kg) IV every 8 hours. I estimated patients half life at around 6.6 hours. Will check a trough level prior to 0600 dose on 3/1/17. Goal peak level estimate: between 15-20 mcg/mL. Pharmacy will continue to follow and will adjust dose/frequency as necessary. Thank you
[2016-06-21] MEDS ORDERED: VANCOMYCIN CONSULT ACTIVE PRN (16:45)
--- NOTE | 2016-06-21 17:11 | ECHOCARDIOGRAM REPORT ---
*NOTICE TO RECEIVING [employer] This information is strictly Confidential and protected under [place] law. [place] law prohibits you from making any further disclosure of this information unless further disclosure is expressly permitted by the written consent of the person to whom it pertains or is authorized by law. A general authorization for the release of medical or other information is not sufficient for this purpose. Hospital accepts no responsibility if the information is made available to any other person, INCLUDING THE PATIENT. Interpretation Summary * Name: NIKHIL CASTILLO Study Date: 06/21/2016 03:24 PM BP: 157/71 mmHg * Patient Location: [facility] HR: 69 * : 1960 (M/d/yyyy) Gender: Male Height: 864 in * Age: 55 yrs Ethnicity: CA Weight: 179 lb * Ordering Physician: Marcin Messer * Performed By: Mil Brush RCS * * Reason For Study: Valvular Heart Dz * BSA: 12.3 m2 * -- Conclusions -- * The left ventricle is moderately dilated. * Left ventricular systolic function is low normal. * Ejection Fraction = 50-55%. * There is normal left ventricular wall thickness. * No regional wall motion abnormalities noted. * No hemodynamically significant valvular aortic stenosis. * Moderate to severe aortic regurgitation. * The aortic root is normal size. * Aortic arch of normal dimension. * No obvious dissection could be visualized. * There is no pericardial effusion. * There is mild tricuspid regurgitation. * Right ventricular systolic pressure is normal. Procedure Details * A complete two-dimensional transthoracic echocardiogram was performed (2D, M-mode, Doppler and color flow Doppler). Left Ventricle * The left ventricle is moderately dilated. * There is normal left ventricular wall thickness. * Left ventricular systolic function is low normal. * Ejection Fraction = 50-55%. * No regional wall motion abnormalities noted. Right Ventricle * The right ventricle is normal in size and function. Atria * The left atrial size is normal. * Right atrial size is normal. * The interatrial septum is intact with no evidence for an atrial septal defect. Mitral Valve * The mitral valve is normal in structure and function. * Significant mitral regurgitation is absent. Tricuspid Valve * The tricuspid valve is normal in structure and function. * There is mild tricuspid regurgitation. * Right ventricular systolic pressure is normal. Aortic Valve * The aortic valve is trileaflet. * The aortic valve opens well. * No hemodynamically significant valvular aortic stenosis. * Moderate to severe aortic regurgitation. Pulmonic Valve * The pulmonary valve is inadequately visualized, but the Doppler data is adequate for interpretation. * There is no significant pulmonary regurgitation. Great Vessels * The aortic root is normal size. * Aortic arch of normal dimension. * No obvious dissection could be visualized. * The pulmonary artery is not well visualized, but is probably normal size. Pericardium/Pleural * There is no pericardial effusion. Great Vessels * Normal inferior vena cava diameter and respiratory variation suggests normal central venous pressure. MMode 2D Measurements and Calculations IVSd 1.0 cm IVSs 1.3 cm LVIDd 6.6 cm LVIDs 4.6 cm LVPWd 1.0 cm LVPWs 1.6 cm IVS/LVPW 10 FS 30.2 % EDV(Teich) 225.4 ml ESV(Teich) 98.5 ml EF(Teich) 56.3 % EDV(cubed) 290.6 ml ESV(cubed) 98.9 ml EF(cubed) 66.0 % % IVS thick 27.4 % % LVPW thick 54.7 % LV mass(C)d 308.0 grams LV mass(C)dI 25.0 grams/m\S\2 LV mass(C)s 278.4 grams LV mass(C)sI 22.6 grams/m\S\2 CO(Teich) 9.5 l/min CI(Teich) 0.77 l/min/m\S\2 SV(Teich) 126.9 ml SI(Teich) 10.3 ml/m\S\2 CO(cubed) 14.4 l/min CI(cubed) 1.2 l/min/m\S\2 SV(cubed) 191.7 ml SI(cubed) 15.6 ml/m\S\2 Ao root diam 4.3 cm Ao root area 14.8 cm\S\2 ACS 2.4 cm LA dimension 4.1 cm asc Aorta Diam 3.6 cm LA/Ao 0.94 LVOT diam 2.6 cm LVOT area 5.5 cm\S\2 LVAd ap4 60.3 cm\S\2 LVLd ap4 10.2 cm EDV(MOD-sp4) 292.0 ml LVAs ap4 34.2 cm\S\2 LVLs ap4 8.5 cm ESV(MOD-sp4) 113.0 ml EF(MOD-sp4) 61.3 % LVAd ap2 48.0 cm\S\2 LVLd ap2 9.9 cm EDV(MOD-sp2) 191.0 ml LVAs ap2 29.5 cm\S\2 LVLs ap2 8.7 cm ESV(MOD-sp2) 81.0 ml EF(MOD-sp2) 57.6 % CO(MOD-sp4) 13.4 l/min CI(MOD-sp4) 1.1 l/min/m\S\2 SV(MOD-sp4) 179.0 ml SI(MOD-sp4) 14.5 ml/m\S\2 CO(MOD-sp2) 8.3 l/min CI(MOD-sp2) 0.67 l/min/m\S\2 SV(MOD-sp2) 110.0 ml SI(MOD-sp2) 8.9 ml/m\S\2 Doppler Measurements and Calculations MV P1/2t max marguerite 360.1 cm/sec MV P1/2t 95.9 msec MVA(P1/2t) 2.3 cm\S\2 MV dec slope 1099.8 cm/sec\S\2 Ao V2 max 245.7 cm/sec Ao max PG 24.1 mmHg Ao max PG (full) 11.2 mmHg Ao V2 mean 167.0 cm/sec Ao mean PG 12.6 mmHg Ao mean PG (full) 6.0 mmHg Ao V2 VTI 48.8 cm DIANDRA(I,A) 4.1 cm\S\2 DIANDRA(I,D) 4.1 cm\S\2 DIANDRA(V,A) 4.0 cm\S\2 DIANDRA(V,D) 4.0 cm\S\2 AI max marguerite 424.8 cm/sec AI max PG 72.2 mmHg AI dec slope 478.6 cm/sec\S\2 AI P1/2t 260.0 msec LV V1 max PG 13.0 mmHg LV V1 mean PG 6.7 mmHg LV V1 max 180.2 cm/sec LV V1 mean 121.6 cm/sec LV V1 VTI 36.8 cm SV(Ao) 722.5 ml SI(Ao) 58.7 ml/m\S\2 SV(LVOT) 201.2 ml SI(LVOT) 16.3 ml/m\S\2 PA V2 max 102.3 cm/sec PA max PG 4.2 mmHg TR max marguerite 358.9 cm/sec
--- NOTE | 2016-06-21 17:11 | EMERGENCY ROOM VISIT NOTE ---
History Report prepared by Erinn: George Greenberg Under the Supervision of: Dr. Luis Navarro M.D. First contact with patient: 11:03 Chief Complaint: FLU LIKE SX Stated Complaint: FLU-LIKE SX History of Present Illness The patient is a 55 year old male who presents to the Emergency Room with complaints of persistent flu-like illness starting about 2 weeks ago. The patient was evaluated in the Emergency Room yesterday for flu-like illness. He had a lumbar puncture yesterday with negative results. He had positive blood cultures. He complains of headache, chills, and diarrhea. He has lost some weight in the past week. He denies any fevers, chest pain, shortness of breath, vomiting, abdominal pain, weakness, or any other complaints. He was diagnosed with a heart murmur about a year ago. The patient denies any IV drug use. Source of History: patient Onset: about 2 weeks ago Position: other (global) Quality: other (flu-like illness) Timing: other (persistent) Associated Symptoms: + chills, + diarrhea, + headache, No SOB, No abdominal pain, No chest pain, No fevers, No vomiting, No weakness Review of Systems See HPI for pertinent positives & negatives. A total of 10 systems reviewed and were otherwise negative. Past Medical & Surgical Medical Problems: (1) Endocarditis (2) Hyperlipidemia Nec/Nos (3) Hypertension Nos (4) Irritable Bowel Syndrome (5) Septicemia Family History FH: heart disease FHx: gallbladder disease Kidney disease Kidney stones Social History Smoking Status: Never Smoker Alcohol Use: none Drug Use: none Marital Status: Housing Status: lives with family Occupation Status: employed Current/Historical Medications Scheduled Aspirin (Aspir-81), 1 TAB PO DAILY Atorvastatin (Lipitor), 10 MG PO EVERY OTHER DAY Ibuprofen (Advil), 600 MG PO UD Allergies Coded Allergies: No Known Allergies (Unverified , 06/21/16) Physical Exam Vital Signs Date Time Temp Pulse Resp B/P Pulse Ox O2 Delivery O2 Flow Rate FiO2 06/21/16 12:35 72 20 154/72 98 Room Air 06/21/16 11:00 82 20 193/79 99 Room Air Physical Exam GENERAL: Patient is well appearing and in minimal distress. He is mildly anxious appearing. HEENT: No acute trauma, normocephalic atraumatic, mucous membranes moist, no nasal congestion, no scleral icterus. NECK: No stridor, no adenopathy, no meningismus, trachea is midline. LUNGS: No dyspnea. Clear to auscultation and equal bilaterally. No wheeze, no rhonchi. HEART: Regular rate and rhythm. Diastolic murmur. ABDOMEN: Soft, nontender, bowel sounds positive, no masses appreciated, no peritonitis. BACK: No midline tenderness, no CVA tenderness EXTREMITIES: Normal motion all extremities, no cyanosis, no edema. NEUROLOGIC: Alert and oriented, no acute motor or sensory deficits, no focal weakness, cranial nerves grossly intact. SKIN: No rash, no jaundice, no diaphoresis. No evidence of splinter hemorrhages. Medical Decision & Procedures Laboratory Results 06/21/16 11:38 Red Blood Count 4.73, Mean Corpuscular Volume 84.8, Mean Corpuscular Hemoglobin 29.0, Mean Corpuscular Hemoglobin Concent 34.2, Mean Platelet Volume 10.4, Neutrophils (%) (Auto) 62.4, Lymphocytes (%) (Auto) 27.9, Monocytes (%) (Auto) 7.9, Eosinophils (%) (Auto) 0.7, Basophils (%) (Auto) 0.4, Neutrophils # (Auto) 5.17, Lymphocytes # (Auto) 2.31, Monocytes # (Auto) 0.65, Eosinophils # (Auto) 0.06, Basophils # (Auto) 0.03 06/21/16 11:38 Test 06/21/16 11:38 06/21/16 11:39 White Blood Count 8.28 K/uL (4.8-10.8) Red Blood Count 4.73 M/uL (4.7-6.1) Hemoglobin 13.7 g/dL (14.0-18.0) Hematocrit 40.1 % (42-52) Mean Corpuscular Volume 84.8 fL (80-100) Mean Corpuscular Hemoglobin 29.0 pg (25-34) Mean Corpuscular Hemoglobin Concent 34.2 g/dl (32-36) Platelet Count 270 K/uL (130-400) Mean Platelet Volume 10.4 fL (7.4-10.4) Neutrophils (%) (Auto) 62.4 % Lymphocytes (%) (Auto) 27.9 % Monocytes (%) (Auto) 7.9 % Eosinophils (%) (Auto) 0.7 % Basophils (%) (Auto) 0.4 % Neutrophils # (Auto) 5.17 K/uL (1.4-6.5) Lymphocytes # (Auto) 2.31 K/uL (1.2-3.4) Monocytes # (Auto) 0.65 K/uL (0.11-0.59) Eosinophils # (Auto) 0.06 K/uL (0-0.5) Basophils # (Auto) 0.03 K/uL (0-0.2) RDW Standard Deviation 40.2 fL (36.4-46.3) RDW Coefficient of Variation 12.9 % (11.5-14.5) Immature Granulocyte % (Auto) 0.7 % Immature Granulocyte # (Auto) 0.06 K/uL (0.00-0.02) Erythrocyte Sedimentation Rate 40 mm/hr (0-14) Anion Gap 3.0 mmol/L (3-11) Est Creatinine Clear Calc Drug Dose 120.6 ml/min Estimated GFR () 119.0 Estimated GFR (Non- 102.7 BUN/Creatinine Ratio 17.1 (10-20) Calcium Level 9.2 mg/dl (8.5-10.1) C-Reactive Protein 5.34 mg/dl (0-0.29) Bedside Lactic Acid Venous 1.04 mmol/L (0.90-1.70) Laboratory results as reviewed by me. Medications Administered Medications (Trade) Dose Ordered Sig/Bryanna Route Start Time Stop Time Status Last Admin Dose Admin Ceftriaxone Sodium 2 gm 2 gm NOW STAT IV 06/21/16 11:14 06/21/16 11:16 DC 06/21/16 11:50 2 GM Vancomycin HCl/ Sodium Chloride (Vancomycin Inj/ Nss 500ml) 540 ml @ 200 mls/hr ONE STAT IV 06/21/16 11:14 06/21/16 13:55 DC 06/21/16 11:50 200 MLS/HR ED Course 1103: The patient was evaluated in room C09. A complete history and physical exam was performed. 1114: Vancomycin HCl 2000 mg/Sodium Chloride 540 ml @ 200 mls/hr IV, Rocephin Inj 2 gm IV 1144: Upon reevaluation, the patient is resting comfortably. Discussed results and treatment plan with the patient. He verbalized understanding and agreement with the treatment plan. I spoke with Dr. Lewis from [facility]. The patient will be evaluated for further management. Medical Decision 55 yr old male arrives with persistent fevers, body aches, headache, weakness and several pound weight loss over last week. Does have cardiac murmur which apparently was recently noted and he was to see cards today actually. Seen yesterday in ED with full septic workup done including LP which was negative. Both blood cultures from yesterday already positive for gram positive cocci. Will presume endocarditis until proven otherwise consistent with new murmur, symptoms and positive cultures. No symptoms consistent with prostatitis thus hold off on rectal exam. UA/CXR clear yesterday and no UTI/Cough symptoms. Stable and in no distress breathing comfortably. Not in septic shock. Started empiric abx and admit to medicine. Consults Time Called: 1142 Consulting Physician: Dr. Lewis from [facility] Returned Call: [address] Lewis from [facility]. Impression Primary Impression: Bacteremia Scribe Attestation The scribe's documentation has been prepared under my direction and personally reviewed by me in its entirety. I confirm that the note above accurately reflects all work, treatment, procedures, and medical decision making performed by me. Departure Information Dispostion Being Evaluated By Hospitalist Referrals No Doctor, Assigned (PCP) Patient Instructions [facility]
[2016-06-21] MEDS ORDERED: GADAVIST IV PRN (18:00)
[2016-06-21] MEDS: ACETAMINOPHEN 325 MG TAB PO PRN ×2 (18:09→22:30)
--- NOTE | 2016-06-21 18:57 | DIAGNOSTIC IMAGING REPORT ---
MRI OF THE CERVICAL SPINE WITH AND WITHOUT CONTRAST CLINICAL HISTORY: Neck pain. Positive blood cultures. Endocarditis. Septicemia. COMPARISON: None. TECHNIQUE: Utilizing a 1.5 Laquita magnet and dedicated coil, multiplanar, multiecho imaging of the cervical spine was performed before and after intravenous administration of 8 of Gadavist. FINDINGS: Alignment of the cervical spine is anatomic. Vertebral body heights are maintained. There is no marrow replacement. Discogenic changes centered at the C5-C6 level are noted. Cervical cord signal and caliber are normal. There is no intracanalicular mass or fluid collection. Visualized portions of the posterior fossa are unremarkable. There is no abnormal enhancement within the cervical canal. Paravertebral soft tissues are unremarkable. There is no evidence for discitis within the cervical spine or visualized portions of the upper thoracic spine. C2-C3: The central canal and the neural foramen are patent. C3-C4: The central canal and neural foramen are patent. C4-C5: There is mild posterior disc osteophyte complex. There is mild narrowing of the central canal. There is moderate narrowing of the right neural foramen and mild narrowing of the left neural foramen appear C5-C6: Left paracentral disc osteophyte complex is noted. There is mild to moderate narrowing of the left aspect of the canal. There is moderate left neural foraminal stenosis. C6-C7: There is disc space narrowing with posterior disc osteophyte complex. There is mild narrowing of the central canal. There is moderate narrowing of the left neural foramen. C7-T1: Left paracentral disc osteophyte complex results in mild narrowing of the canal. Neural foramen are patent. IMPRESSION: 1. No acute process within the cervical spine by MRI. No epidural abscess or evidence for discitis. 2. 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 Mild to moderate multilevel central canal and neural foraminal stenosis, as detailed above. Electronically signed by: Jerrell Brannon M.D. 06/21/2016 6:56 PM Dictated Date/Time: 06/21/2016 6:49 PM
[2016-06-21 19:27] VITALS: BP 148/68; PULSE 78; TEMP 36.9; O2SAT 97
[2016-06-21] MEDS: VANCOMYCIN INJ 1,300 MG in SODIUM CHLORIDE 0.9% 250ML 250 ML IV SCH (22:21)
[2016-06-21 23:41] VITALS: BP 127/61; PULSE 68; TEMP 37; O2SAT 96
[2016-06-22] VITALS (18 sets, daily range): BP systolic 117–158; BP diastolic 36–68; PULSE 62–76; TEMP 36.6–37.1; O2SAT 92–100
[2016-06-22] MEDS: VANCOMYCIN INJ 1,300 MG in SODIUM CHLORIDE 0.9% 250ML 250 ML IV SCH ×3 (06:06→22:25)
[2016-06-22] MEDS ORDERED: PNEUMOCOCCAL ADMINISTRATION CHARGE ONE (06:15)
[2016-06-22] MEDS ORDERED: PNEUMOCOCCAL POLYSACCHARIDES 25 MCG/0.5 ML VIAL/SYR IM. ONE (06:15)
[2016-06-22 06:38] LABS: BASO % 0.5 %; BASO ABS # 0.04 K/uL (0-0.2); COMPLETE YES; EOS % 0.8 %; HEMATOCRIT 38.4 % (42-52); IG% 0.6 %; LYMPH % 31.4 %; LYMPH ABS # 2.69 K/uL (1.2-3.4); MEAN CELL VOLUME 84.2 fL (80-100); MEAN CORPUSCULAR HEMOGLOBIN 28.7 pg (25-34); MEAN CORPUSCULAR HGB CONC 34.1 g/dl (32-36); MEAN PLATELET VOLUME 10.1 fL (7.4-10.4); NEUT % 57.7 %; PLATELET COUNT 269 K/uL (130-400); RED BLOOD COUNT 4.56 M/uL (4.7-6.1); WHITE BLOOD COUNT 8.56 K/uL (4.8-10.8)
[2016-06-22 07:09] LABS: ALKALINE PHOSPHATASE 141 U/L (45-117); ALT/SGPT 70 U/L (12-78); AST/SGOT 20 U/L (15-37); BLOOD UREA NITROGEN 13 mg/dl (7-18); BUN/CREATININE RATIO 16.5 (10-20); CALCIUM 8.9 mg/dl (8.5-10.1); CARBON DIOXIDE 28 mmol/L (21-32); CHLORIDE 103 mmol/L (98-107); CREATININE 0.77 mg/dl (0.60-1.40); GLUCOSE 95 mg/dl (70-99); POTASSIUM 4.4 mmol/L (3.5-5.1); SODIUM 139 mmol/L (136-145)
[2016-06-22 07:15] LABS: C-REACTIVE PROTEIN 4.11 mg/dl (0-0.29); RHEUMATOID FACTOR < 10.0 U/mL (0-15)
[2016-06-22] MEDS: ACETAMINOPHEN 325 MG TAB PO PRN (08:35)
--- NOTE | 2016-06-22 09:40 | Progress Note ---
Subjective Date of Service: Jun 22, 2016. Subjective Pt evaluation today including: conversation w/ patient, physical exam, chart review, lab review, review of studies, conversation w/ media sales consultant, review of inpatient medication list Pain: right-sided neck pain, improved PO Intake: nothing by mouth pending ISAIAH Voiding: no voiding problems 55-year-old male admitted yesterday with 2 out of 2 positive blood cultures and clinical history and physical exam findings suspicious for bacterial endocarditis. The patient had a transthoracic echocardiogram yesterday which did not reveal any vegetations; he is scheduled for a transesophageal echocardiogram later today. The patient was seen in consultation by both cardiology and infectious disease. The consultations are reviewed and appreciated. The patient remains on ceftriaxone 2 g IV every 24 hours and vancomycin dosed per pharmacy. The patient notes continued right sided neck pain although it is better when compared to yesterday. He underwent an MRI of the cervical spine last evening which was negative for infectious findings although it did note some mild to moderate recently known cervical stenosis. Problem List Medical Problems: (1) Bacteremia Status: Acute (2) Body aches Status: Acute (3) Headache Status: Acute (4) Neck pain Status: Acute Review of Systems Constitutional: No chills, No fever Eyes: No problem reported ENT: No problem reported Respiratory: No cough, No shortness of breath, No wheezing Cardiac: No chest pain, No orthopnea Abdomen: No problem reported Musculoskeletal: + muscle pain Male : No problem reported Neurologic: No numbness/tingling, No weakness Psychiatric: No problem reported Heme: No problem reported Endo: No problem reported All Other Systems: Reviewed and Negative Medications Acetaminophen 650 mg 650 mg Q4H PRN PO Last administered on 06/22/16 08:35; Admin Dose 650 MG; Start 06/21/16 at 12:30; Stop 07/21/16 at 12:29 Vancomycin HCl/ Sodium Chloride (Vancomycin Inj/ Nss 250ml) 276 ml @ 125 mls/ hr Q8H IV Last administered on 06/22/16 06:06; Admin Dose 125 MLS/HR; Start at 22:00; Stop 08/02/16 at 21:59 Objective Vital Signs Date Time Temp Pulse Resp B/P Pulse Ox O2 Delivery O2 Flow Rate FiO2 06/22/16 08:39 36.8 66 18 142/61 96 06/22/16 04:38 37.0 63 20 138/65 96 Room Air 06/22/16 04:00 Room Air 06/22/16 00:01 Room Air 06/21/16 23:41 37.0 68 20 127/61 96 Room Air 06/21/16 20:00 Room Air 06/21/16 19:27 36.9 78 18 148/68 97 Room Air 06/21/16 16:24 37.1 72 22 163/69 97 Room Air 06/21/16 16:00 98 Room Air 06/21/16 14:36 37.5 69 20 157/71 98 Room Air 06/21/16 14:30 37.5 20 157/71 98 Room Air 06/21/16 13:29 76 18 146/60 98 06/21/16 13:11 70 18 146/60 97 Room Air 06/21/16 12:39 73 06/21/16 12:35 72 20 154/72 98 Room Air 06/21/16 11:00 82 20 193/79 99 Room Air Physical Exam General Appearance: WD/WN, no apparent distress Eyes: normal inspection, PERRL, EOMI ENT: normal ENT inspection, hearing grossly normal Neck: supple, no adenopathy, thyroid normal, no JVD, no carotid bruits, trachea midline, + pertinent finding (he has some neck discomfort with right cervical rotation. Flexion and extension is unaffected. On palpation there is no midline cervical spine tenderness. Inspection of the skin overlying the areas unremarkable. Palpation of the suboccipital muscles reveal slight spasm but no focal tenderness.) Respiratory/Chest: chest non-tender, lungs clear, normal breath sounds, no respiratory distress, no accessory muscle use Cardiovascular: regular rate, rhythm, no edema, no gallop, no JVD, + diastolic murmur (grade 3 over 4 right sternal border), + systolic murmur (2/6 left lower sternal border) Abdomen: normal bowel sounds, non tender Extremities: normal range of motion, non-tender Neurologic/Psychiatric: no motor/sensory deficits, alert, normal mood/affect, oriented x 3 Skin: normal color, warm/dry, no rash, + pertinent finding (no significant nail findings) Laboratory Results Last 24 Hours Test 06/21/16 11:38 06/21/16 11:39 06/22/16 06:15 White Blood Count 8.28 K/uL 8.56 K/uL Red Blood Count 4.73 M/uL 4.56 M/uL Hemoglobin 13.7 g/dL 13.1 g/dL Hematocrit 40.1 % 38.4 % Mean Corpuscular Volume 84.8 fL 84.2 fL Mean Corpuscular Hemoglobin 29.0 pg 28.7 pg Mean Corpuscular Hemoglobin Concent 34.2 g/dl 34.1 g/dl Platelet Count 270 K/uL 269 K/uL Mean Platelet Volume 10.4 fL 10.1 fL Neutrophils (%) (Auto) 62.4 % 57.7 % Lymphocytes (%) (Auto) 27.9 % 31.4 % Monocytes (%) (Auto) 7.9 % 9.0 % Eosinophils (%) (Auto) 0.7 % 0.8 % Basophils (%) (Auto) 0.4 % 0.5 % Neutrophils # (Auto) 5.17 K/uL 4.94 K/uL Lymphocytes # (Auto) 2.31 K/uL 2.69 K/uL Monocytes # (Auto) 0.65 K/uL 0.77 K/uL Eosinophils # (Auto) 0.06 K/uL 0.07 K/uL Basophils # (Auto) 0.03 K/uL 0.04 K/uL RDW Standard Deviation 40.2 fL 39.7 fL RDW Coefficient of Variation 12.9 % 13.0 % Immature Granulocyte % (Auto) 0.7 % 0.6 % Immature Granulocyte # (Auto) 0.06 K/uL 0.05 K/uL Erythrocyte Sedimentation Rate 40 mm/hr 34 mm/hr Sodium Level 135 mmol/L 139 mmol/L Potassium Level 3.9 mmol/L 4.4 mmol/L Chloride Level 99 mmol/L 103 mmol/L Carbon Dioxide Level 33 mmol/L 28 mmol/L Anion Gap 3.0 mmol/L 8.0 mmol/L Blood Urea Nitrogen 13 mg/dl 13 mg/dl Creatinine 0.76 mg/dl 0.77 mg/dl Est Creatinine Clear Calc Drug Dose 120.6 ml/min 119.0 ml/min Estimated GFR () 119.0 118.4 Estimated GFR (Non- 102.7 102.2 BUN/Creatinine Ratio 17.1 16.5 Random Glucose 87 mg/dl 95 mg/dl Calcium Level 9.2 mg/dl 8.9 mg/dl C-Reactive Protein 5.34 mg/dl 4.11 mg/dl Bedside Lactic Acid Venous 1.04 mmol/L Total Bilirubin 0.5 mg/dl Direct Bilirubin 0.1 mg/dl Aspartate Amino Transf (AST/SGOT) 20 U/L Alanine Aminotransferase (ALT/SGPT) 70 U/L Alkaline Phosphatase 141 U/L Total Protein 6.9 gm/dl Albumin 3.3 gm/dl Rheumatoid Factor < 10.0 U/mL Assessment and Plan 55 year old male with prostate 10 day history of generalized illness, fatigue, and chills in the setting of positive blood cultures for gram-positive cocci and a pronounced diastolic cardiac murmur consistent with aortic regurgitation. 1 rule out bacterial endocarditis 2 elevated blood pressure without previous diagnosis of hypertension 3 right sided neck pain, normal cervical spine MRI 4 elevated alkaline phosphatase of uncertain significance PLAN 1 transesophageal echocardiogram as scheduled for today 2 continue ceftriaxone and vancomycin 3 fractionate alkaline phosphatase 4 father disposition will depend on results of today's ISAIAH Continued [facility] stay due to: multiple IV medications needed, other (pending studies) Discharge planning: home with IV medication
--- NOTE | 2016-06-22 09:48 | CARDIOLOGY PROGRESS NOTE ---
DATE: 06/22/2016 SUBJECTIVE: Mr. Jacome is resting comfortably in bedside chair without complaints of chest pain, dyspnea, fevers, or chills. Results of his blood cultures and echocardiogram discussed in detail. We have also discussed the need for transesophageal echocardiogram. The patient voices an understanding and agrees to proceed. OBJECTIVE: VITAL SIGNS: Blood pressure is 140/60 with a regular pulse of 66. Respiratory rate is 18. The patient is afebrile at 36.8 degrees Celsius. Saturations 96% on room air. NECK: Supple with full carotid upstrokes. There are no carotid bruits. Jugular venous pressure is flat at 90 degrees. There is no thyromegaly. CARDIOVASCULAR: Reveals a regular rhythm with a 3/6 diastolic decrescendo murmur heard across the entire precordium, but loudest in the aortic region. No S3. LUNGS: Clear without rales, rhonchi, or wheezes. ABDOMEN: Benign without bruits. EXTREMITIES: Reveal intact radial artery pulses bilaterally. No evidence of splinter hemorrhages. There is no peripheral edema. DATA: CBC notes a hemoglobin of 13.1, hematocrit 38.4, white count 8.5, platelet count 269,000. Electrolytes note a sodium of 139, potassium 4.4, chloride 103, bicarbonate 20, BUN 13, creatinine 0.7, glucose 95. C-reactive protein elevated at 4.1. Blood cultures from the are pending. Blood cultures from June 20 note an alpha strep. Echocardiogram interpreted yesterday by Dr. Abebe notes a moderately dilated left ventricle with low normal ejection fraction of 50% to 55%. There is moderate to severe aortic insufficiency without obvious vegetation. radiation monitor is benign. IMPRESSION AND PLAN: 1. Presumed endocarditis -- two positive blood cultures with an alpha strep species. The patient has significant aortic insufficiency. We will proceed with a transesophageal echocardiogram later today to rule out abscess formation and a vegetation. Obviously, the patient will require long-term antibiotics. Infectious Disease is on the case. 2. Known significant aortic insufficiency -- has been followed with routine echocardiograms as an outpatient. Echocardiogram done in early April noted normal left ventricular systolic function with an ejection fraction of 60% to 65%. Left ventricle is mildly dilated and there was evidence of at least moderate aortic insufficiency. This was an eccentric jet. That study was unchanged from when done in the summer of 2016.
[2016-06-22] MEDS: CEFTRIAXONE SOD INJ 2,000 MG in DEXTROSE 5% 50ML 50 ML IV SCH (11:46)
[2016-06-22] MEDS ORDERED: FENTANYL CITRATE INJ 50 MCG/1 ML 2 ML VIAL ONE (12:11)
[2016-06-22] MEDS ORDERED: CANNULA ONE ×2 (12:11)
[2016-06-22] MEDS ORDERED: MIDAZOLAM HCL 1 MG/ML 2ML VIAL ONE (12:11)
[2016-06-22] MEDS ORDERED: BENZOCAIN/TETRACA/BUTAM SPRAY 200 APPLN/20 GM SPRY ONE (12:11)
--- NOTE | 2016-06-22 14:15 | Progress Note ---
Subjective Date of Service: Jun 22, 2016. Subjective initial blood cultures from Er visit on 06/20 with alpha strep, not enterococcus. csf cultures remain negative. afebrile. mri c spine negative for epidural disease. wbc nml today. for jennifer today. no overnight events. on broad spectrum abx, tolerating well. Problem List Medical Problems: (1) Bacteremia Status: Acute (2) Body aches Status: Acute (3) Headache Status: Acute (4) Neck pain Status: Acute Objective Vital Signs Date Time Temp Pulse Resp B/P Pulse Ox O2 Delivery O2 Flow Rate FiO2 06/22/16 14:07 36.7 63 18 131/61 97 Room Air 06/22/16 13:15 63 21 131/41 95 Room Air 06/22/16 13:04 67 20 144/48 93 Room Air 06/22/16 12:54 62 19 128/47 92 Room Air 06/22/16 12:45 71 15 117/58 98 Nasal Cannula 2.0 06/22/16 12:43 Nasal Cannula 2.0 06/22/16 12:40 70 19 153/49 99 Nasal Cannula 2.0 06/22/16 12:35 71 11 144/52 99 Nasal Cannula 2.0 06/22/16 12:30 70 17 137/36 98 Nasal Cannula 2.0 06/22/16 12:26 65 15 139/37 100 Nasal Cannula 2.0 06/22/16 11:45 36.8 62 16 157/68 98 06/22/16 11:45 62 16 158/49 98 Room Air 06/22/16 11:41 36.8 62 16 157/68 98 Room Air 06/22/16 08:39 36.8 66 18 142/61 96 06/22/16 08:00 96 Room Air 06/22/16 04:38 37.0 63 20 138/65 96 Room Air 06/22/16 04:00 Room Air 06/22/16 00:01 Room Air 06/21/16 23:41 37.0 68 20 127/61 96 Room Air 06/21/16 20:00 Room Air 06/21/16 19:27 36.9 78 18 148/68 97 Room Air 06/21/16 16:24 37.1 72 22 163/69 97 Room Air 06/21/16 16:00 98 Room Air 06/21/16 14:36 37.5 69 20 157/71 98 Room Air 06/21/16 14:30 37.5 20 157/71 98 Room Air Laboratory Results Last 24 Hours Test 06/22/16 06:15 White Blood Count 8.56 K/uL Red Blood Count 4.56 M/uL Hemoglobin 13.1 g/dL Hematocrit 38.4 % Mean Corpuscular Volume 84.2 fL Mean Corpuscular Hemoglobin 28.7 pg Mean Corpuscular Hemoglobin Concent 34.1 g/dl Platelet Count 269 K/uL Mean Platelet Volume 10.1 fL Neutrophils (%) (Auto) 57.7 % Lymphocytes (%) (Auto) 31.4 % Monocytes (%) (Auto) 9.0 % Eosinophils (%) (Auto) 0.8 % Basophils (%) (Auto) 0.5 % Neutrophils # (Auto) 4.94 K/uL Lymphocytes # (Auto) 2.69 K/uL Monocytes # (Auto) 0.77 K/uL Eosinophils # (Auto) 0.07 K/uL Basophils # (Auto) 0.04 K/uL RDW Standard Deviation 39.7 fL RDW Coefficient of Variation 13.0 % Immature Granulocyte % (Auto) 0.6 % Immature Granulocyte # (Auto) 0.05 K/uL Erythrocyte Sedimentation Rate 34 mm/hr Sodium Level 139 mmol/L Potassium Level 4.4 mmol/L Chloride Level 103 mmol/L Carbon Dioxide Level 28 mmol/L Anion Gap 8.0 mmol/L Blood Urea Nitrogen 13 mg/dl Creatinine 0.77 mg/dl Est Creatinine Clear Calc Drug Dose 119.0 ml/min Estimated GFR () 118.4 Estimated GFR (Non- 102.2 BUN/Creatinine Ratio 16.5 Random Glucose 95 mg/dl Calcium Level 8.9 mg/dl Total Bilirubin 0.5 mg/dl Direct Bilirubin 0.1 mg/dl Aspartate Amino Transf (AST/SGOT) 20 U/L Alanine Aminotransferase (ALT/SGPT) 70 U/L Alkaline Phosphatase 141 U/L C-Reactive Protein 4.11 mg/dl Total Protein 6.9 gm/dl Albumin 3.3 gm/dl Rheumatoid Factor < 10.0 U/mL Hepatitis C Antibody NEG Assessment and Plan (1) Septicemia Assessment & Plan: remain concerned for IE, especially with recent dental work. of note, elbow culture from 12/2014 with alpha strep as well. will continue broad spectrum abx pending the results of his JENNIFER and repeat blood cultures which are currently pending. Continued [facility] stay due to: multiple IV medications needed, other (pending studies) Discharge planning: home with IV medication
--- NOTE | 2016-06-22 15:57 | TEE ---
*NOTICE TO RECEIVING [employer] AGENCY This information is strictly Confidential and protected under [place] law. [place] law prohibits you from making any further disclosure of this information unless further disclosure is expressly permitted by the written consent of the person to whom it pertains or is authorized by law. A general authorization for the release of medical or other information is not sufficient for this purpose. Hospital accepts no responsibility if the information is made available to any other person, INCLUDING THE PATIENT. Interpretation Summary * Name: NIKHIL CASTILLO Study Date: 06/22/2016 11:56 AM BP: 139/37 mmHg * Patient Location: .2T\S\S243\S\1 HR: 68 * : 1960 (M/d/yyyy) Gender: Male Height: 72 in * Age: 55 yrs Ethnicity: [place] Weight: 174 lb * Ordering Physician: Tristan Llamas * Referring Physician: Self, Referred * Performed By: Mil Brush RCS * * Reason For Study: Eval for Endocarditis * BSA: 2.0 m2 * -- Conclusions -- * Large, mobile vegetation involving the aortic valve with some prolapse of the valve resulting in severe regurgitation Procedure Details * ISAIAH Probe #1 utilized for procedure. * The study was performed in Cardiac Catheterization Lab. * Time out was conducted by the physician, nurse, and warehousing technician with positive identification of patient and procedure. * Informed consent for Transesophageal Echocardiogram was obtained prior to the procedure. * An intravenous line was placed. A topical anesthetic agent was used for oropharangeal anesthesia. A bite block was inserted. * The patient's vital signs, including blood pressure, heart rate, pulse oximetry and cardiac rhythm were monitored throughout the procedure . * Fentanyl 50 mcg was administered for procedural sedation. * Midazolam 3 mg administered for sedation. * A multifrequency, multiplane transesopheageal echocardiographic endoscope was inserted and manipulated in the standard fashion to achieve multiplane views. * The transesophageal probe was passed without difficulty. * Contrast injection with agitated saline was performed. * The patient tolerated the procedure well without evidence of orophangeal or esophageal trauma. * A 2D transesophageal echocardiogram was performed. * A 2D transesophageal echocardiogram with color flow Doppler was performed. * A 2D transesophageal echocardiogram with Doppler and color flow Doppler was performed. Left Ventricle * The left ventricular ejection fraction is grossly normal. Atria * Injection of contrast documented no interatrial shunt. Mitral Valve * The mitral valve is normal. * There is trace mitral regurgitation. Tricuspid Valve * The tricuspid valve is not well visualized, but is grossly normal. Aortic Valve * The aortic valve is trileaflet. * An abscess cavity is not identified. * There is a large vegetation or mass on the aortic valve. * Large, mobile vegetation involving the aortic valve with some prolapse of the valve resulting in severe regurgitation * Severe aortic regurgitation. * There is an eccentric jet of aortic insufficiency directed against the anterior mitral leaflet. Great Vessels * The aortic root and proximal ascending aorta are normal sized. Pericardium * There is no pericardial effusion.
[2016-06-23 03:56] VITALS: BP 124/70; PULSE 64; TEMP 37; O2SAT 97
[2016-06-23] MEDS ORDERED: VANCOMYCIN TROUGH SCH (05:30)
[2016-06-23] MEDS: VANCOMYCIN INJ 1,300 MG in SODIUM CHLORIDE 0.9% 250ML 250 ML IV SCH (05:38)
[2016-06-23 06:05] LABS: BASO % 0.5 %; BASO ABS # 0.04 K/uL (0-0.2); COMPLETE YES; EOS % 1.2 %; IG% 0.6 %; LYMPH % 27.7 %; LYMPH ABS # 2.27 K/uL (1.2-3.4); MEAN CELL VOLUME 84.2 fL (80-100); MEAN CORPUSCULAR HEMOGLOBIN 28.7 pg (25-34); MEAN CORPUSCULAR HGB CONC 34.1 g/dl (32-36); MEAN PLATELET VOLUME 10.1 fL (7.4-10.4); MONO % 8.9 %; NEUT % 61.1 %; PLATELET COUNT 302 K/uL (130-400); RED BLOOD COUNT 4.63 M/uL (4.7-6.1)
[2016-06-23 06:41] LABS: ALT/SGPT 56 U/L (12-78); AST/SGOT 19 U/L (15-37); BLOOD UREA NITROGEN 12 mg/dl (7-18); BUN/CREATININE RATIO 15.4 (10-20); CALCIUM 8.8 mg/dl (8.5-10.1); CARBON DIOXIDE 30 mmol/L (21-32); CHLORIDE 102 mmol/L (98-107); GLUCOSE 90 mg/dl (70-99); POTASSIUM 4.4 mmol/L (3.5-5.1); SODIUM 139 mmol/L (136-145)
[2016-06-23 06:44] LABS: ALKALINE PHOSPHATASE 132 U/L (45-117); C-REACTIVE PROTEIN 2.94 mg/dl (0-0.29)
[2016-06-23 07:47] VITALS: BP 131/66; PULSE 64; TEMP 36.8; O2SAT 97
--- NOTE | 2016-06-23 09:49 | CARDIOLOGY PROGRESS NOTE ---
DATE: 06/23/2016 DATE: 06/23/2016. SUBJECTIVE: Mr. Jacome is resting comfortably in bedside chair without complaints of chest pain, dyspnea, palpitations, fever, or chills. Results of his transesophageal echocardiogram reviewed in detail. Dr. Messer also at the bedside. OBJECTIVE: VITAL SIGNS: Blood pressure is 130/65 with a regular pulse of 64. Respiratory rate is 18 and the patient is afebrile at 36.8 degrees Celsius. Saturation is 97% on room air. NECK: Supple with full carotid upstrokes. There are no carotid bruits. Jugular venous pressure is flat at 90 degrees. There is no thyromegaly. CARDIOVASCULAR EXAMINATION: Reveals a regular rhythm with normal S1 and S2. A 3/6 diastolic decrescendo murmur noted, loudest in the aortic region. No S3. LUNGS: Clear without rales, rhonchi or wheezes. ABDOMEN: Soft without bruits. EXTREMITIES: Reveal intact radial artery pulses bilaterally. There is no peripheral edema. Extremities note intact radial artery pulses bilaterally. There is no peripheral edema. LABORATORY DATA: CBC notes a hemoglobin of 13.3, hematocrit 39.0, white count 8.2, platelet count 302,000. Electrolytes note a sodium of 139, potassium 4.4, chloride 102, bicarbonate 30, BUN 12, creatinine 0.8, glucose 90. quality assurance monitor body is benign. A transesophageal echocardiogram notes a large vegetation on the aortic valve with a degree of prolapse. There is severe asymmetric aortic insufficiency directed towards the anterior mitral leaflet. Left ventricular systolic function is normal. IMPRESSION AND PLAN: 1. 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 Did have a dental cleaning 2 weeks prior to presentation, which is the likely etiology. Sensitivities on the organism note a resistance to azithromycin and erythromycin, otherwise pansensitive. Antibiotic regimen per infectious disease. 2. Severe aortic insufficiency -- will discuss the case with the cardiothoracic surgeons at [facility] to determine timing of valve replacement surgery.
--- NOTE | 2016-06-23 11:09 | Progress Note ---
Subjective Date of Service: Jun 23, 2016. Subjective Pt evaluation today including: conversation w/ patient, physical exam, chart review, lab review pt seen in follow up, had ISAIAH yesterday, revealed large, mobile AV veg with severe AR. He is OOB to chair this am. no cp, no sob, no garcia, no f/c. has been on vanco and ctx and tolerating well. Initial cultures from 06/20 grew Strep mitis, repeats from 06/21 negative. feeling well today, asking to go home. [place] [facility] [place] AVR. wbc nml, vanco trough 16. for picc placement today and d/c home on daily abx pending insurance approval. All remaining ros reviewed and are negative. Problem List Medical Problems: (1) Bacteremia Status: Acute (2) Body aches Status: Acute (3) Headache Status: Acute (4) Neck pain Status: Acute Objective Vital Signs Date Time Temp Pulse Resp B/P Pulse Ox O2 Delivery O2 Flow Rate FiO2 06/23/16 07:47 36.8 64 18 131/66 97 Room Air 06/23/16 04:00 Room Air 06/23/16 03:56 37.0 64 18 124/70 97 Room Air 06/23/16 00:01 Room Air 06/22/16 23:04 37.1 69 18 128/60 96 Room Air 06/22/16 20:00 Room Air 06/22/16 19:20 37.1 72 18 130/53 98 Room Air 06/22/16 16:00 98 Room Air 06/22/16 15:44 36.6 76 18 130/59 98 Room Air 06/22/16 14:07 36.7 63 18 131/61 97 Room Air 06/22/16 13:15 63 21 131/41 95 Room Air 06/22/16 13:04 67 20 144/48 93 Room Air 06/22/16 12:54 62 19 128/47 92 Room Air 06/22/16 12:45 71 15 117/58 98 Nasal Cannula 2.0 06/22/16 12:43 Nasal Cannula 2.0 06/22/16 12:40 70 19 153/49 99 Nasal Cannula 2.0 06/22/16 12:35 71 11 144/52 99 Nasal Cannula 2.0 06/22/16 12:30 70 17 137/36 98 Nasal Cannula 2.0 06/22/16 12:26 65 15 139/37 100 Nasal Cannula 2.0 06/22/16 11:45 36.8 62 16 157/68 98 06/22/16 11:45 62 16 158/49 98 Room Air 06/22/16 11:41 36.8 62 16 157/68 98 Room Air Physical Exam General Appearance: WD/WN, no apparent distress Eyes: EOMI Neck: supple Respiratory/Chest: lungs clear, normal breath sounds, no respiratory distress Cardiovascular: regular rate, rhythm, no edema, + diastolic murmur, + systolic murmur Abdomen: non tender, soft Extremities: non-tender, normal inspection, no pedal edema Neurologic/Psychiatric: alert, normal mood/affect Skin: normal color Laboratory Results Item Value Date Time Blood Culture - Preliminary Resulted 06/20/16 1313 Blood Gram Positive Cocci Blood Culture - Preliminary Resulted 06/20/16 1320 Blood Gram Positive Cocci Blood Culture - Final Complete 06/20/16 1313 Blood Streptococcus Mitis/Oralis Blood Culture - Final Complete 06/20/16 1320 Blood Streptococcus Mitis/Oralis Blood Culture - Preliminary Resulted 06/21/16 1557 Blood NO GROWTH TO DATE. Blood Culture - Preliminary Resulted 06/21/16 1559 Blood NO GROWTH TO DATE. Last 24 Hours Test 06/23/16 05:39 White Blood Count 8.20 K/uL Red Blood Count 4.63 M/uL Hemoglobin 13.3 g/dL Hematocrit 39.0 % Mean Corpuscular Volume 84.2 fL Mean Corpuscular Hemoglobin 28.7 pg Mean Corpuscular Hemoglobin Concent 34.1 g/dl Platelet Count 302 K/uL Mean Platelet Volume 10.1 fL Neutrophils (%) (Auto) 61.1 % Lymphocytes (%) (Auto) 27.7 % Monocytes (%) (Auto) 8.9 % Eosinophils (%) (Auto) 1.2 % Basophils (%) (Auto) 0.5 % Neutrophils # (Auto) 5.01 K/uL Lymphocytes # (Auto) 2.27 K/uL Monocytes # (Auto) 0.73 K/uL Eosinophils # (Auto) 0.10 K/uL Basophils # (Auto) 0.04 K/uL RDW Standard Deviation 39.2 fL RDW Coefficient of Variation 12.9 % Immature Granulocyte % (Auto) 0.6 % Immature Granulocyte # (Auto) 0.05 K/uL Erythrocyte Sedimentation Rate 39 mm/hr Sodium Level 139 mmol/L Potassium Level 4.4 mmol/L Chloride Level 102 mmol/L Carbon Dioxide Level 30 mmol/L Anion Gap 7.0 mmol/L Blood Urea Nitrogen 12 mg/dl Creatinine 0.80 mg/dl Est Creatinine Clear Calc Drug Dose 114.5 ml/min Estimated GFR () 116.6 Estimated GFR (Non- 100.6 BUN/Creatinine Ratio 15.4 Random Glucose 90 mg/dl Calcium Level 8.8 mg/dl Total Bilirubin 0.4 mg/dl Direct Bilirubin < 0.1 mg/dl Aspartate Amino Transf (AST/SGOT) 19 U/L Alanine Aminotransferase (ALT/SGPT) 56 U/L Alkaline Phosphatase 132 U/L C-Reactive Protein 2.94 mg/dl Total Protein 7.0 gm/dl Albumin 3.3 gm/dl Vancomycin Level Trough 16.0 mcg/ml Assessment and Plan (1) Endocarditis Assessment & Plan: will change abx to ctx 2g iv daily, will need minimum 4 weeks from first negative culture, 06/21 ngtd. will need weekly cbc, cmp, esr while on therapy. ok for picc. will need ID followup post d/c, would suggest he followup after he has consult for AVR next week so final duration can be determined depending on surgical timing. He will require prophylaxis in future with dental visits. ok for d/c from ID standpoint when outpt abx in place. will stop vanco. (2) Septicemia Continued [facility] stay due to: multiple IV medications needed, other (pending studies) Discharge planning: home with IV medication
[2016-06-23 11:29] VITALS: BP 163/62; PULSE 75; TEMP 36.9; O2SAT 96
--- NOTE | 2016-06-23 12:51 | TEE ---
*NOTICE TO RECEIVING [employer] AGENCY This information is strictly Confidential and protected under [place] law. [place] law prohibits you from making any further disclosure of this information unless further disclosure is expressly permitted by the written consent of the person to whom it pertains or is authorized by law. A general authorization for the release of medical or other information is not sufficient for this purpose. Hospital accepts no responsibility if the information is made available to any other person, INCLUDING THE PATIENT. Interpretation Summary * Name: NIKHIL CASTILLO Study Date: 06/22/2016 11:56 AM BP: 139/37 mmHg * Patient Location: .2T\S\S243\S\1 HR: 68 * : 1960 (M/d/yyyy) Gender: Male Height: 72 in * Age: 55 yrs Ethnicity: [place] Weight: 174 lb * Ordering Physician: Tristan Llamas * Referring Physician: Self, Referred * Performed By: Mil Brush RCS * * Reason For Study: Eval for Endocarditis * BSA: 2.0 m2 * -- Conclusions -- * Large, mobile vegetation involving the aortic valve with some prolapse of the valve resulting in severe regurgitation Procedure Details * ISAIAH Probe #1 utilized for procedure. * The study was performed in Cardiac Catheterization Lab. * Time out was conducted by the physician, nurse, and glass technologist with positive identification of patient and procedure. * Informed consent for Transesophageal Echocardiogram was obtained prior to the procedure. * An intravenous line was placed. A topical anesthetic agent was used for oropharangeal anesthesia. A bite block was inserted. * The patient's vital signs, including blood pressure, heart rate, pulse oximetry and cardiac rhythm were monitored throughout the procedure . * Fentanyl 50 mcg was administered for procedural sedation. * Midazolam 3 mg administered for sedation. * A multifrequency, multiplane transesopheageal echocardiographic endoscope was inserted and manipulated in the standard fashion to achieve multiplane views. * The transesophageal probe was passed without difficulty. * Contrast injection with agitated saline was performed. * The patient tolerated the procedure well without evidence of orophangeal or esophageal trauma. * A 2D transesophageal echocardiogram was performed. * A 2D transesophageal echocardiogram with color flow Doppler was performed. * A 2D transesophageal echocardiogram with Doppler and color flow Doppler was performed. Left Ventricle * The left ventricular ejection fraction is grossly normal. Atria * Injection of contrast documented no interatrial shunt. Mitral Valve * The mitral valve is normal. * There is trace mitral regurgitation. Tricuspid Valve * The tricuspid valve is not well visualized, but is grossly normal. Aortic Valve * The aortic valve is trileaflet. * An abscess cavity is not identified. * There is a large vegetation or mass on the aortic valve. * Large, mobile vegetation involving the aortic valve with some prolapse of the valve resulting in severe regurgitation * Severe aortic regurgitation. * There is an eccentric jet of aortic insufficiency directed against the anterior mitral leaflet. Great Vessels * The aortic root and proximal ascending aorta are normal sized. Pericardium * There is no pericardial effusion.
[2016-06-23] MEDS: CEFTRIAXONE SOD INJ 2,000 MG in DEXTROSE 5% 50ML 50 ML IV SCH (13:18)
[2016-06-23] MEDS ORDERED: RCPAV1 IV (13:38)
--- NOTE | 2016-06-23 13:42 | Discharge Instructions ---
Discharge Instructions Admission Reason for Admission: Endocarditis; Septicemia Discharge Discharge Diagnosis / Problem: Endocarditis Discharge Goals Goal(s): Improve function, Learn about illness, Diagnostic testing, Therapeutic intervention, Prevent Disease Progression Activity Recommendations Activity Limitations: resume your previous activity Exercise/Sports Limitations: as tolerated May Resume Sexual Activity: when tolerated Shower/Bathe: no limitations Driving or Machine Use: no limitations . Instructions / Follow-Up Instructions / Follow-Up 1) Follow up with Infectious Disease. 2) Follow up with Cardiology. Home Nursing 1) Ceftriaxone 2g IV daily x 4 weeks, 2) CBC, CMP, and ESR weekly. Current Hospital Diet Patient's current hospital diet: AHA Diet (Heart Healthy) Discharge Diet Recommended Diet: Regular Diet Procedures Procedures Performed: 1) Transthoracic echocardiogram 2) Transesophageal echocardiogram Pending Studies Studies pending at discharge: no Medical Emergencies . Who to Call and When: Medical Emergencies: If at any time you feel your situation is an emergency, please call 911 immediately. . Non-Emergent Contact Non-Emergency issues call your: Primary Care Provider, Key Attendant Call Non-Emergent contact if: temperature is above 100.5 . . "Provider Documentation" section prepared by Marcin Messer. VTE Core Measure Inpt VTE Proph given/why not?: [employer] [facility] Drug Monitoring Program Drug Monitoring Findings: No controlled substances issued.
--- NOTE | 2016-06-23 14:29 | Discharge Summary ---
Discharge Summary Date of Service Jun 23, 2016. Discharge Summary Admission Date: Jun 21, 2016 at 12:35 Discharge Date: Jun 23, 2016 Discharge Disposition: Home with services Principal Diagnosis: rule out bacterial endocarditis#2 aortic insufficiency Immunizations: Have You Had Influenza Vaccine: Unknown History of Tetanus Vaccine?: Unknown History of Pneumococcal: No History of Hepatitis B Vaccine: Unknown Procedures: #1 transthoracic echocardiogram #2 transesophageal echocardiogram Consultations: #1 cardiology #2 infectious disease Medication Reconciliation New Medications: Ceftriaxone Sod (Rocephin) 1 Gm Inj 2 GM IV Q24H for 42 Days, VIAL Continued Medications: Aspirin (Aspir-81) 81 Mg Tab 1 TAB PO DAILY, 3 Refills Atorvastatin (Lipitor) 10 Mg Tab 10 MG PO EVERY OTHER DAY, 0 Refills Discontinued Medications: Ibuprofen (Advil) 200 Mg Tab 600 MG PO UD, TAB Referrals At Discharge Follow up Referrals: Scleroscope Tester Referral - Within 1-2 Weeks @ [facility] [place] with Muriel Follow up Infectious Disease - Within 1-2 Weeks @ [facility] Provider Group with Jett Follow Up Discharge Exam Review of Systems: Constitutional: No chills, No fever Respiratory: No cough, No dyspnea at rest, No dyspnea on exertion, No shortness of breath Cardiovascular: No chest pain Abdomen: No nausea, No pain Musculoskeletal: + muscle pain, No calf pain, No joint pain, No swelling Genitourinary - Male: No problem reported Hematologic / Lymphatic: No abnormal bleeding/bruising Integumentary: No problem reported Physical Exam: General Appearance: WD/WN, no apparent distress Eyes: normal inspection, PERRL, EOMI ENT: hearing grossly normal, TMs normal, pharynx normal Neck: supple (the patient had full range of motion of the neck in flexion and extension. The previously noted limitation in right cervical rotation actually has improved. There was no tenderness to palpation of the cervical spine. There are no soft tissue masses appreciated in the posterior anterior neck nor in the supraclavicular areas.), no adenopathy, thyroid normal, no JVD Respiratory/Chest: chest non-tender, lungs clear, normal breath sounds, no respiratory distress, no accessory muscle use Cardiovascular: regular rate, rhythm, no edema, no gallop, + diastolic murmur (harsh diastolic murmurs heard best at the right upper sternal border), + systolic murmur (a soft systolic murmur is appreciated at the apex.) Abdomen / GI: normal bowel sounds, non tender, soft Extremities: normal inspection, no calf tenderness, normal capillary refill , no pedal edema Neurologic/Psychiatric: no motor/sensory deficits, alert, normal mood/affect , normal reflexes, oriented x 3 Skin: normal color, warm/dry, no rash Hospital Course 55-year-old male with history of aortic insufficiency had reported approximately 10-14 day history of generalized illness. The patient was seen at an outpatient urgent care center and was given a prescription for Zithromax. When his symptoms worsened, he presented to the [facility] urgent care clinic a second time and he was probably referred to the emergency department for further evaluation. At his initial emergency Department edition the patient underwent a lumbar puncture which was unremarkable. He also had blood cultures drawn. Given his overall health and generally well appearance he was discharged home. The following day, both blood cultures resulted as positive and the patient was found and told to return to the emergency department. Given the patient's history of aortic insufficiency and a finding of a harsh diastolic murmur upon examination, initial suspicion was bacterial endocarditis. The patient was started on ceftriaxone and vancomycin. The patient underwent a transthoracic echocardiogram on the day of admission which did not reveal any vegetation. The patient underwent a trans-esophageal echocardiogram the following day which revealed a large vegetation on the aortic valve and severe aortic insufficiency. The patient had also noted some right-sided neck pain. The patient had an MRI of the C-spine which did not reveal any evidence of infection or abscess. It did show some cervical stenosis which the patient about previously. Upon subsequent examinations, the patient's right-sided neck pain had improved. Cardiology and infectious disease were consult. Based on culture sensitivities , Irwin is found sensitive to Rocephin and thus the vancomycin was discontinued. Infectious disease recommended Rocephin 2 g IV daily for 4 weeks. Case management was consult and they were able to arrange home nursing reports the patient had 100% coverage. Total Time Spent: Greater than 30 minutes This includes examination of the patient, discharge planning, medication reconciliation, and communication with other providers. Discharge Instructions Please refer to the electronic Patient Visit Report (Discharge Instructions) for additional information. Follow-Up #1 the patient will follow-up with Dr. Eriberto Llamas, cardiology. Dr. Llamas will coronary care with cardiothoracic surgery at [facility] to discuss replacement the patient's aortic valve. #2 the patient will continue care with infectious disease. #3 the patient will follow-up with his care provider within one to 2 weeks. #4 the patient will receive Rocephin 2 g IV daily at his house. Home nursing has been arranged. #5 CBC CMP and ESR will be drawn weekly.
[2016-06-23 15:40] VITALS: BP 169/55; PULSE 79; TEMP 36.9; O2SAT 96
[2016-06-23 15:47] VITALS: BP 169/55; PULSE 79; TEMP 36.9; O2SAT 96
[2016-06-25 21:40] LABS: ALK PHOS ISO-INTESTINE 0 % (1-24); ALK PHOS ISO-LIVER 67 % (25-69); ALK PHOS ISO-PLACENTAL 0 % (<=0); ALK PHOS MACROHEPATIC 0 % (<=0); ALP (ALK P'TASE) 118 U/L (40-115)
== END 2016-06-23 17:22 | disposition home health service (06) | DRG 871 ==
LOC: ENRESERVTM → ENRESERVDT → C.EDB 10:51 → C.2T 12:35
PROVIDERS: ADMIT Family Medicine; ATTEND Family Medicine
PROC: 02HV33Z Insertion of Infusion Device into Superior Vena Cava, Percutaneous Approach (ICD-10-PCS; principal; 2016-06-23)
DX: A40.0 Sepsis due to streptococcus, group A (principal); I33.0 Acute and subacute infective endocarditis; E78.5 Hyperlipidemia, unspecified; I35.1 Nonrheumatic aortic (valve) insufficiency; K58.9 Irritable bowel syndrome, unspecified

== ENCOUNTER → 2016-06-29 | Outpatient (CLI) | payer OTHER ==
[~2016-06-29] MED LIST changes: +ASPI81TA28 PO; +CETI10TA84 PO; +LANS30CA63 PO; +LPT10 PO; -MELO15TA4 PO; +METO25TA56 PO; +NAPR500T3 PO; +RCPAV1 IV
[2016-06-29 13:44] LABS: BASO % 0.3 %; BASO ABS # 0.02 K/uL (0-0.2); COMPLETE YES; EOS % 0.9 %; IG% 0.3 %; LYMPH % 27.4 %; LYMPH ABS # 1.76 K/uL (1.2-3.4); MEAN CELL VOLUME 85.6 fL (80-100); MEAN CORPUSCULAR HEMOGLOBIN 29.1 pg (25-34); MEAN CORPUSCULAR HGB CONC 33.9 g/dl (32-36); MEAN PLATELET VOLUME 11.1 fL (7.4-10.4); MONO % 5.4 %; NEUT % 65.7 %; PLATELET COUNT 370 K/uL (130-400); RED BLOOD COUNT 4.44 M/uL (4.7-6.1); WHITE BLOOD COUNT 6.43 K/uL (4.8-10.8)
[2016-06-29 13:53] LABS: ALT/SGPT 33 U/L (12-78); BLOOD UREA NITROGEN 13 mg/dl (7-18); BUN/CREATININE RATIO 16.5 (10-20); CARBON DIOXIDE 25 mmol/L (21-32); CHLORIDE 105 mmol/L (98-107); CREATININE 0.77 mg/dl (0.60-1.40); GLUCOSE 123 mg/dl (70-99); SODIUM 141 mmol/L (136-145)
[2016-06-29 13:56] LABS: ALB/GLOB RATIO 0.9 (0.9-2); ALKALINE PHOSPHATASE 90 U/L (45-117); AST/SGOT 18 U/L (15-37)
== END | disposition home or self-care (01) ==
LOC: C.LABSPEC 12:50
PROVIDERS: ATTEND Family Medicine
DX: A41.9 Sepsis, unspecified organism (principal)

== ENCOUNTER → 2016-07-07 | Outpatient (CLI) | payer OTHER ==
[~2016-07-07] MED LIST changes: +ATOR10TA82 PO; -ATOR10TA88 PO
[2016-07-07 10:45] LABS: HEMATOCRIT 39.4 % (42-52); MEAN CELL VOLUME 85.3 fL (80-100); MEAN CORPUSCULAR HEMOGLOBIN 28.8 pg (25-34); MEAN CORPUSCULAR HGB CONC 33.8 g/dl (32-36); MEAN PLATELET VOLUME 11.5 fL (7.4-10.4); PLATELET COUNT 273 K/uL (130-400); RED BLOOD COUNT 4.62 M/uL (4.7-6.1)
[2016-07-07 10:54] LABS: ALT/SGPT 29 U/L (12-78); AST/SGOT 17 U/L (15-37); BLOOD UREA NITROGEN 14 mg/dl (7-18); BUN/CREATININE RATIO 18.7 (10-20); CALCIUM 9.1 mg/dl (8.5-10.1); CARBON DIOXIDE 28 mmol/L (21-32); CHLORIDE 105 mmol/L (98-107); CREATININE 0.77 mg/dl (0.60-1.40); GLUCOSE 129 mg/dl (70-99); POTASSIUM 3.8 mmol/L (3.5-5.1); SODIUM 141 mmol/L (136-145)
[2016-07-07 10:56] LABS: ALB/GLOB RATIO 1.1 (0.9-2); ALKALINE PHOSPHATASE 67 U/L (45-117)
--- NOTE | 2016-07-08 09:10 | CODING QUERY NO DIAGNOSIS ---
Valid Physician Order Needed A valid physician order must be submitted in order to properly bill for the service(s) provided, including date of service(s), valid diagnosis, and physician signature. If these tests are done on a recurring basis the original physician order must be submitted in order to code and bill for the service(s) provided. Please fax us the original, signed physician order so that we may expedite billing to [phone] DOS 07/07/2016 * SED-RATE * CBCW/O DIFF * CMP Thank you [facility]
== END | disposition home or self-care (01) ==
LOC: C.LABSPEC 10:26
PROVIDERS: ATTEND Internal Medicine Infectious Disease
DX: I38 Endocarditis, valve unspecified (principal); R78.81 Bacteremia; Z45.2 Encounter for adjustment and management of vascular access device

== ENCOUNTER → 2016-07-13 | Outpatient (CLI) | payer OTHER ==
[2016-07-13 13:26] LABS: BASO % 0.6 %; BASO ABS # 0.03 K/uL (0-0.2); COMPLETE YES; EOS % 2.4 %; HEMATOCRIT 40.9 % (42-52); IG% 0.2 %; LYMPH % 23.8 %; LYMPH ABS # 1.21 K/uL (1.2-3.4); MEAN CELL VOLUME 84.2 fL (80-100); MEAN CORPUSCULAR HEMOGLOBIN 28.8 pg (25-34); MEAN CORPUSCULAR HGB CONC 34.2 g/dl (32-36); MEAN PLATELET VOLUME 12.1 fL (7.4-10.4); MONO % 10.2 %; NEUT % 62.8 %; PLATELET COUNT 211 K/uL (130-400); RED BLOOD COUNT 4.86 M/uL (4.7-6.1); WHITE BLOOD COUNT 5.08 K/uL (4.8-10.8)
[2016-07-13 14:24] LABS: ALT/SGPT 31 U/L (12-78); BLOOD UREA NITROGEN 10 mg/dl (7-18); CALCIUM 9.4 mg/dl (8.5-10.1); CARBON DIOXIDE 27 mmol/L (21-32); CHLORIDE 106 mmol/L (98-107); CREATININE 0.81 mg/dl (0.60-1.40); GLUCOSE 123 mg/dl (70-99); POTASSIUM 3.9 mmol/L (3.5-5.1); SODIUM 142 mmol/L (136-145)
[2016-07-13 14:26] LABS: ALB/GLOB RATIO 1.1 (0.9-2); ALKALINE PHOSPHATASE 68 U/L (45-117); AST/SGOT 16 U/L (15-37)
--- NOTE | 2016-07-15 10:06 | CODING QUERY NO DIAGNOSIS ---
Valid Physician Order Needed A valid physician order must be submitted in order to properly bill for the service(s) provided, including date of service(s), valid diagnosis, and physician signature. If these tests are done on a recurring basis the original physician order must be submitted in order to code and bill for the service(s) provided. Please fax us the original, signed physician order so that we may expedite billing to [phone] DOS 07/13/16 * CMP, CBC, ESR Thank you! [facility]
== END | disposition home or self-care (01) ==
LOC: C.LABSPEC 12:44
PROVIDERS: ATTEND Family Medicine
DX: I38 Endocarditis, valve unspecified (principal); R78.81 Bacteremia

== ENCOUNTER → 2016-07-13 | Outpatient (CLI) | payer OTHER ==
[~2016-07-13] MED LIST changes: -ATOR10TA82 PO; +ATOR10TA88 PO
== END | disposition home or self-care (01) ==
LOC: C.LABSPEC 12:01
PROVIDERS: ATTEND Internal Medicine Infectious Disease
DX: R19.5 Other fecal abnormalities (principal)

== ENCOUNTER → 2016-07-20 | Outpatient (CLI) | payer OTHER ==
[~2016-07-20] MED LIST changes: +ATOR10TA82 PO; -ATOR10TA88 PO
[2016-07-20 10:28] LABS: BASO % 0.6 %; BASO ABS # 0.04 K/uL (0-0.2); COMPLETE YES; EOS % 2.3 %; HEMATOCRIT 35.5 % (42-52); IG% 1.1 %; LYMPH % 22.7 %; LYMPH ABS # 1.49 K/uL (1.2-3.4); MEAN CELL VOLUME 83.1 fL (80-100); MEAN CORPUSCULAR HEMOGLOBIN 28.6 pg (25-34); MEAN CORPUSCULAR HGB CONC 34.4 g/dl (32-36); MEAN PLATELET VOLUME 11.4 fL (7.4-10.4); NEUT % 60.3 %; PLATELET COUNT 245 K/uL (130-400); RED BLOOD COUNT 4.27 M/uL (4.7-6.1); WHITE BLOOD COUNT 6.56 K/uL (4.8-10.8)
[2016-07-20 10:34] LABS: ALT/SGPT 20 U/L (12-78); AST/SGOT 14 U/L (15-37); BLOOD UREA NITROGEN 12 mg/dl (7-18); BUN/CREATININE RATIO 15.2 (10-20); CALCIUM 9.5 mg/dl (8.5-10.1); CARBON DIOXIDE 28 mmol/L (21-32); CHLORIDE 106 mmol/L (98-107); GLUCOSE 132 mg/dl (70-99); POTASSIUM 3.9 mmol/L (3.5-5.1); SODIUM 141 mmol/L (136-145)
[2016-07-20 10:36] LABS: ALB/GLOB RATIO 0.9 (0.9-2); ALKALINE PHOSPHATASE 75 U/L (45-117)
--- NOTE | 2016-07-21 15:20 | CODING QUERY NO DIAGNOSIS ---
Valid Physician Order Needed 60 A valid physician order must be submitted in order to properly bill for the service(s) provided, including date of service(s), valid diagnosis, and physician signature. If these tests are done on a recurring basis the original physician order must be submitted in order to code and bill for the service(s) provided. Please fax us the original, signed physician order so that we may expedite billing to [phone] DOS 07/20/16 * COMPREHENSIVE METABOLIC * CBC W/AUTO DIFF * ESR Thank you [facility] Information Management
== END | disposition home or self-care (01) ==
LOC: C.LABSPEC 10:15
PROVIDERS: ATTEND Family Medicine
DX: I38 Endocarditis, valve unspecified (principal); A41.9 Sepsis, unspecified organism

== ENCOUNTER 2016-08-12 21:38 | Emergency (ER) | payer OTHER ==
[~2016-08-12] VITALS: Ht 182.9 cm; Wt 83.9 kg
[~2016-08-12 21:38] MED LIST changes: -ASPI81TA28 PO; -CETI10TA84 PO; -LANS30CA63 PO; -LPT10 PO; -METO25TA56 PO; -NAPR500T3 PO; -RCPAV1 IV
--- NOTE | 2016-08-12 22:08 | EMERGENCY ROOM VISIT NOTE ---
History Report prepared by Erinn: Alcon Chaudhari Under the Supervision of: Dr. Tristan Ferrari D.O. First contact with patient: 21:54 Chief Complaint: CHEST PAIN Stated Complaint: HEART VALVE REPLACEMENT, CHEST PAIN History of Present Illness The patient is a 55 year old male who presents to the Emergency Room with complaints of a persistent fever that started earlier today. The patient became febrile with a temperature around 100 today. He did not take anything for the fever prior to arrival. He has had rhinorrhea and cough for several days. He is s/p valve replacement one week ago performed at [place]. He called [facility] and was told to come to the ED. 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 The source of his endocarditis was reportedly a dental infection. He was receiving IV antibiotics for one month through a PICC line leading up to the surgery. He was on Rocephin and Amoxicillin, with his last dose being the day before the surgery last week. The patient reportedly had an episode of A- fib after the surgery which is resolved. Source of History: patient Onset: today Position: other (global) Symptom Intensity: around 100 Quality: other (febrile) Timing: other (persistent) Associated Symptoms: + cough Review of Systems See HPI for pertinent positives & negatives. A total of 10 systems reviewed and were otherwise negative. Past Medical & Surgical Medical Problems: (1) Hyperlipidemia Nec/Nos (2) Hypertension Nos (3) Irritable Bowel Syndrome Family History FH: heart disease FHx: gallbladder disease Kidney disease Kidney stones Social History Smoking Status: Never Smoker Alcohol Use: none Drug Use: none Marital Status: Housing Status: lives with family Occupation Status: employed Current/Historical Medications Scheduled Aspirin (Aspirin Ec), 81 MG PO DAILY Atorvastatin (Atorvastatin Calcium), 10 MG PO HS Lansoprazole (Prevacid), 30 MG PO DAILY Metoprolol Tartrate (Lopressor) (Lopressor), 25 MG PO BID Scheduled PRN Cetirizine (Zyrtec), 10 MG PO DAILY PRN for Allergy Symptoms Naproxen (Naproxen), 500 MG PO BID PRN for Pain Allergies Coded Allergies: No Known Allergies (Unverified , 08/12/16) Physical Exam Vital Signs Date Time Temp Pulse Resp B/P Pulse Ox O2 Delivery O2 Flow Rate FiO2 08/13/16 00:19 37.1 85 16 156/99 97 Room Air 08/12/16 22:29 86 18 153/97 97 Room Air 08/12/16 22:24 Room Air 08/12/16 22:04 97 Room Air 08/12/16 21:56 95 08/12/16 21:51 37.3 92 22 138/105 97 Room Air Physical Exam GENERAL: Patient is awake, alert, and in no acute distress. Patient is resting comfortably and showing no signs of anxiety EYES: The conjunctivae are clear. The pupils are round and reactive. EARS, NOSE, MOUTH AND THROAT: The nose is without any evidence of any deformity. Mucous membranes are moist tongue is midline NECK: The neck is nontender and supple. RESPIRATORY: Diminished breath sounds noted throughout, scattered rhonchi noted , no tachypnea or conversational dyspnea. CARDIOVASCULAR: Regular rate and rhythm noted, no murmur was noted to auscultation. GASTROINTESTINAL: The abdomen is soft. Bowel sounds are present in all quadrants. Abdomen is nontender MUSCULOSKELETAL/EXTREMITIES: There is no evidence of gross deformity full range of motion is noted in the hips and shoulders SKIN: No pedal edema was noted. Skin is warm and dry. Healing sternal post- surgical scar in mid chest, no erythema drainage or dehiscence noted. NEUROLOGIC: Patient is awake alert and oriented x3. Medical Decision & Procedures ER Provider Diagnostic Interpretation: X-ray results as stated below per interpretation by me and the radiologist. CHEST ONE VIEW PORTABLE HISTORY: Sepsis COMPARISON: Chest 06/20/2016. FINDINGS: The lungs are clear. No pleural effusions. No pneumothorax. Poststernotomy changes. The heart is mildly enlarged. IMPRESSION: Mild cardiomegaly. Electronically signed by: Jose Martin Cao M.D. 08/12/2016 10:37 PM Dictated Date/Time: 08/12/2016 10:36 PM Laboratory Results 08/12/16 22:10 Red Blood Count 3.68, Mean Corpuscular Volume 85.3, Mean Corpuscular Hemoglobin 28.0, Mean Corpuscular Hemoglobin Concent 32.8, Mean Platelet Volume 9.4, Neutrophils (%) (Auto) 53.3, Lymphocytes (%) (Auto) 25.4, Monocytes (%) (Auto) 13.4, Eosinophils (%) (Auto) 6.3, Basophils (%) (Auto) 0.5, Neutrophils # (Auto ) 4.37, Lymphocytes # (Auto) 2.08, Monocytes # (Auto) 1.10, Eosinophils # (Auto ) 0.52, Basophils # (Auto) 0.04 08/12/16 22:10 Test 08/12/16 22:10 08/12/16 22:20 08/12/16 22:27 08/12/16 22:30 White Blood Count 8.20 K/uL (4.8-10.8) Red Blood Count 3.68 M/uL (4.7-6.1) Hemoglobin 10.3 g/dL (14.0-18.0) Hematocrit 31.4 % (42-52) Mean Corpuscular Volume 85.3 fL (80-100) Mean Corpuscular Hemoglobin 28.0 pg (25-34) Mean Corpuscular Hemoglobin Concent 32.8 g/dl (32-36) Platelet Count 379 K/uL (130-400) Mean Platelet Volume 9.4 fL (7.4-10.4) Neutrophils (%) (Auto) 53.3 % Lymphocytes (%) (Auto) 25.4 % Monocytes (%) (Auto) 13.4 % Eosinophils (%) (Auto) 6.3 % Basophils (%) (Auto) 0.5 % Neutrophils # (Auto) 4.37 K/uL (1.4-6.5) Lymphocytes # (Auto) 2.08 K/uL (1.2-3.4) Monocytes # (Auto) 1.10 K/uL (0.11-0.59) Eosinophils # (Auto) 0.52 K/uL (0-0.5) Basophils # (Auto) 0.04 K/uL (0-0.2) RDW Standard Deviation 42.7 fL (36.4-46.3) RDW Coefficient of Variation 13.6 % (11.5-14.5) Immature Granulocyte % (Auto) 1.1 % Immature Granulocyte # (Auto) 0.09 K/uL (0.00-0.02) Erythrocyte Sedimentation Rate 54 mm/hr (0-14) Prothrombin Time 10.5 SECONDS (9.0-12.0) Prothromb Time International Ratio 1.0 (0.9-1.1) Activated Partial Thromboplast Time 29.7 SECONDS (21.0-31.0) Partial Thromboplastin Ratio 1.1 Anion Gap 7.0 mmol/L (3-11) Est Creatinine Clear Calc Drug Dose 134.8 ml/min Estimated GFR () 124.6 Estimated GFR (Non- 107.5 BUN/Creatinine Ratio 17.8 (10-20) Calcium Level 9.2 mg/dl (8.5-10.1) Phosphorus Level 2.6 mg/dl (2.5-4.9) Magnesium Level 2.0 mg/dl (1.8-2.4) Total Bilirubin 0.3 mg/dl (0.2-1) Aspartate Amino Transf (AST/SGOT) 24 U/L (15-37) Alanine Aminotransferase (ALT/SGPT) 37 U/L (12-78) Alkaline Phosphatase 111 U/L (45-117) Total Creatine Kinase 92 U/L (39-308) Creatine Kinase MB 2.1 ng/ml (0.5-3.6) Creatine Kinase MB Ratio 2.3 (0-3.0) Troponin I 0.082 ng/ml (0-0.045) C-Reactive Protein 4.32 mg/dl (0-0.29) Pro-B-Type Natriuretic Peptide 439 pg/ml (0-900) Total Protein 6.8 gm/dl (6.4-8.2) Albumin 3.5 gm/dl (3.4-5.0) Globulin 3.3 gm/dl (2.5-4.0) Albumin/Globulin Ratio 1.1 (0.9-2) Lipase 411 U/L (73-393) Influenza Type A (RT-PCR) Neg for Influ A (NEG) Influenza Type A Antigen Neg for Influ A (NEG) Influenza Type B Antigen Neg for Influ B (NEG) Influenza Type B (RT-PCR) Neg for Influ B (NEG) Bedside Lactic Acid Venous 1.25 mmol/L (0.90-1.70) Urine Color YELLOW Urine Appearance CLEAR (CLEAR) Urine pH 6.0 (4.5-7.5) Urine Specific [place] 1.010 (1.000-1.030) Urine Protein NEG (NEG) Urine Glucose (UA) NEG (NEG) Urine Ketones NEG (NEG) Urine Occult Blood NEG (NEG) Urine Nitrite NEG (NEG) Urine Bilirubin NEG (NEG) Urine Urobilinogen NEG (NEG) Urine Leukocyte Esterase NEG (NEG) Laboratory results per my review. ECG Indication: other (s/p mitral valve repair) Rate (beats per minute): 93 Rhythm: normal sinus Findings: T-wave inversion (diffuse), no acute ischemic change, no ectopy Comparison ECG Date: 2016 Change: no significant change ED Course 2154: The patient was evaluated in room C7. A complete history and physical examination were performed. 2336: Discussed the case with Dr. Drummond, Cardiothoracic surgeon, who is covering for Dr. Kiran. The patient will follow up. 2340: Reassessed the patient. Discussed the discharge instructions with him. He verbalized understanding and agreement. The patient is ready for discharge. Medical Decision Prior records/ancillary studies reviewed. Triage Nursing notes reviewed. The patient's history was concerning for fever. Differential diagnosis: Etiologies such as viral syndrome, otitis, pharyngitis, pneumonia, influenza, meningitis, urinary tract infection, sepsis, bacteremia, as well as others were entertained. The patient is a 55-year-old male who is status post aortic valve replacement after having an aortic valve replacement for endocarditis. Currently the patient is not taking any antibiotics. The patient was instructed to come to the emergency department by his surgical group when he called them about the fever. No source for the fever was found. I discussed the patient's laboratory and radiographic studies with him. His white blood cell count was normal but his sedimentation rate was elevated. It appears that his sedimentation rate has been elevated since he had surgery. I discussed the patient's laboratory and radiographic studies with his surgical group at [facility]. The patient is scheduled for a follow-up appointment tomorrow. He was encouraged to keep this appointment. The covering physician stated that they would likely do an echocardiogram to evaluate the valve at that time. The patient was also encouraged to return to the emergency department immediately if symptoms change worsen or the need arises. I inquired about giving the patient dose of antibiotics while he was in the emergency department but the covering surgeon felt this could have the possibility of confusing his overall scenario rather he recommended the patient return to the emergency department if he develops any further fevers or worsening symptoms. Consults Time Called: [id number] Consulting Physician: Dr. Drummond, Cardiothoracic surgeon Returned Call: [phone]: Discussed the case with Dr. Drummond, Cardiothoracic surgeon, who is covering for Dr. Kiran. The patient will follow up. Impression Primary Impression: Fever Additional Impression: S/P aortic valve replacement Scribe Attestation The scribe's documentation has been prepared under my direction and personally reviewed by me in its entirety. I confirm that the note above accurately reflects all work, treatment, procedures, and medical decision making performed by me. Departure Information Dispostion Home / Self-Care Referrals Tristan Llamas M.D. (PCP) Forms IMPORTANT VISIT INFORMATION Patient Instructions ED Fever Control, My [facility] Additional Instructions Follow-up with your cardiothoracic surgeon tomorrow. Continue all medications as prescribed. Rest and avoid any strenuous activity. Problem Qualifiers Primary Impression: Fever Fever type: unspecified Qualified Codes: R50.9 - Fever, unspecified
[2016-08-12 22:14] VITALS: Ht 182.9 cm; Wt 83.9 kg
[2016-08-12 22:38] LABS: BASO % 0.5 %; BASO ABS # 0.04 K/uL (0-0.2); COMPLETE YES; EOS % 6.3 %; HEMATOCRIT 31.4 % (42-52); IG% 1.1 %; LYMPH % 25.4 %; LYMPH ABS # 2.08 K/uL (1.2-3.4); MEAN CELL VOLUME 85.3 fL (80-100); MEAN CORPUSCULAR HGB CONC 32.8 g/dl (32-36); MEAN PLATELET VOLUME 9.4 fL (7.4-10.4); MONO % 13.4 %; NEUT % 53.3 %; PLATELET COUNT 379 K/uL (130-400); RED BLOOD COUNT 3.68 M/uL (4.7-6.1)
--- NOTE | 2016-08-12 22:39 | DIAGNOSTIC IMAGING REPORT ---
CHEST ONE VIEW PORTABLE HISTORY: Sepsis COMPARISON: Chest 06/20/2016. FINDINGS: The lungs are clear. No pleural effusions. No pneumothorax. Poststernotomy changes. The heart is mildly enlarged. IMPRESSION: Mild cardiomegaly. Electronically signed by: Jose Martin Cao M.D. 08/12/2016 10:37 PM Dictated Date/Time: 08/12/2016 10:36 PM
[2016-08-12 22:41] LABS: MANUAL MICROSCOPIC REQUIRED? NO; URINE APPEARANCE CLEAR (CLEAR); URINE BILIRUBIN NEG (NEG); URINE COLOR YELLOW; URINE NITRITE NEG (NEG); UROBILINOGEN NEG (NEG)
[2016-08-12 22:50] LABS: REVIEW REQ? NO
[2016-08-12 22:50] LABS: PARTIAL THROMBOPLASTIN RATIO 1.1; PROTHROMBIN TIME (PATIENT) 10.5 SECONDS (9.0-12.0)
[2016-08-12] MEDS ORDERED: LANS30CA63 PO (22:52)
[2016-08-12] MEDS ORDERED: NAPR500T3 PO (22:52)
[2016-08-12] MEDS ORDERED: ASPI81TA28 PO (22:52)
[2016-08-12] MEDS ORDERED: METO25TA56 PO (22:52)
[2016-08-12] MEDS ORDERED: LPT10 PO (22:52)
[2016-08-12] MEDS ORDERED: CETI10TA84 PO (22:52)
[2016-08-12 22:53] LABS: ZZUR CULT IF INDIC CLEAN CATCH NO
[2016-08-12 22:58] LABS: BUN/CREATININE RATIO 17.8 (10-20); C-REACTIVE PROTEIN 4.32 mg/dl (0-0.29); CALCIUM 9.2 mg/dl (8.5-10.1); CREATININE 0.68 mg/dl (0.60-1.40)
[2016-08-12 23:05] LABS: ALB/GLOB RATIO 1.1 (0.9-2); CKMB/CK RATIO 2.3 (0-3.0); PHOSPHORUS 2.6 mg/dl (2.5-4.9)
[2016-08-13 00:19] VITALS: BP 156/99; PULSE 85; TEMP 37.1; O2SAT 97
[2016-08-13 00:36] LABS: INFLUENZA A PCR Neg for Influ A (NEG); INFLUENZA B PCR Neg for Influ B (NEG)
== END 2016-08-13 00:24 | disposition home or self-care (01) ==
LOC: C.EDB 21:39 → C.EDC 08-13 00:24
DX: I35.8 Other nonrheumatic aortic valve disorders (principal); E78.5 Hyperlipidemia, unspecified; I10 Essential (primary) hypertension; K58.9 Irritable bowel syndrome, unspecified; Z79.82 Long term (current) use of aspirin; Z79.899 Other long term (current) drug therapy; Z82.49 Family history of ischemic heart disease and other diseases of the circulatory system; Z83.79 Family history of other diseases of the digestive system; Z84.1 Family history of disorders of kidney and ureter

== ENCOUNTER → 2016-11-02 | Outpatient (CLI) | payer OTHER ==
[~2016-11-02] MED LIST changes: -ASPI-232 PO; +ASPI81TA28 PO; -ATOR10TA82 PO; +CETI10TA84 PO; +LANS30CA63 PO; +LPT10 PO; +METO25TA56 PO; +NAPR500T3 PO
[2016-11-02 10:13] LABS: ALT/SGPT 31 U/L (12-78); BLOOD UREA NITROGEN 14 mg/dl (7-18); BUN/CREATININE RATIO 17.5 (10-20); CARBON DIOXIDE 27 mmol/L (21-32); CHLORIDE 106 mmol/L (98-107); CHOLESTEROL 144 mg/dl (0-200); CREATININE 0.77 mg/dl (0.60-1.40); GLUCOSE 94 mg/dl (70-99); POTASSIUM 3.9 mmol/L (3.5-5.1); SODIUM 139 mmol/L (136-145)
[2016-11-02 10:16] LABS: HDL CHOLESTEROL 48 mg/dl; LDL CHOLESTEROL CALCULATED 75 mg/dl; TRIGLYCERIDES 106 mg/dl (0-150); VERY LOW DENSITY LIPOPROT CALC 21 mg/dl
[2016-11-02 10:35] LABS: ESTIMATED AVERAGE GLUCOSE 114 mg/dl; HA1C FLAG Normal (Normal)
== END | disposition home or self-care (01) ==
LOC: C.LAB1850 08:19
PROVIDERS: ATTEND Family Medicine
DX: E78.5 Hyperlipidemia, unspecified (principal); R03.0 Elevated blood-pressure reading, without diagnosis of hypertension; R73.09 Other abnormal glucose

== ENCOUNTER → 2017-05-06 | Outpatient (CLI) | payer BC ==
[2017-05-06 09:43] LABS: HEMOGLOBIN A1C 5.7 % (4.5-5.6)
[2017-05-06 09:51] LABS: ALT/SGPT 44 U/L (12-78); BLOOD UREA NITROGEN 15 mg/dl (7-18); CALCIUM 9.2 mg/dl (8.5-10.1); CARBON DIOXIDE 27 mmol/L (21-32); CREATININE 0.72 mg/dl (0.60-1.40); GLUCOSE 95 mg/dl (70-99); POTASSIUM 4.1 mmol/L (3.5-5.1); SODIUM 137 mmol/L (136-145)
[2017-05-06 10:01] LABS: CHOLESTEROL 151 mg/dl (0-200); LDL CHOLESTEROL CALCULATED 83 mg/dl
== END | disposition home or self-care (01) ==
LOC: C.LAB1850 07:56
PROVIDERS: ATTEND Family Medicine
DX: E78.5 Hyperlipidemia, unspecified (principal); R73.09 Other abnormal glucose